=== PATIENT | female | born 1970 | race Caucasian/White ===

== ENCOUNTER 2016-04-12 05:34 | Inpatient (IN) | payer BC, OTHER ==
[~2016-04-12] VITALS: Ht 160 cm; Wt 67.5 kg
[~2016-04-12 05:34] MED LIST: ALBU1AER9 INH; ASCO500T16 PO; CHOL400C7 PO; OMEP20CA9 PO; OXYC-57 PO; VITA400C3 PO; VITATAB19 PO
[2016-04-12] MEDS ORDERED: KETOROLAC TROMETHAMINE 30 MG/ML VIAL IV STA (05:52)
[2016-04-12] MEDS ORDERED: SODIUM CHLORIDE 0.9% 1000ML 1,000 ML IV STA ×2 (05:52→06:58)
[2016-04-12] MEDS ORDERED: HYDROmorphone INJ 1 MG/ML SYR IV STA ×2 (05:52→15:22)
[2016-04-12 06:03] LABS: BASO % 0.1 %; BASO ABS # 0.02 K/uL (0-0.2); COMPLETE YES; EOS % 0.8 %; HEMATOCRIT 44.5 % (37-47); IG% 0.3 %; LYMPH % 28.9 %; LYMPH ABS # 4.55 K/uL (1.2-3.4); MEAN CELL VOLUME 85.1 fL (80-100); MEAN CORPUSCULAR HEMOGLOBIN 29.1 pg (25-34); MEAN CORPUSCULAR HGB CONC 34.2 g/dl (32-36); MEAN PLATELET VOLUME 10.2 fL (7.4-10.4); MONO % 5.5 %; NEUT % 64.4 %; PLATELET COUNT 319 K/uL (130-400); RED BLOOD COUNT 5.23 M/uL (4.2-5.4); WHITE BLOOD COUNT 15.74 K/uL (4.8-10.8)
[2016-04-12] MEDS ORDERED: HYDROmorphone INJ 0.5 MG/0.5 ML SYR IV STA (06:16)
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
[2016-04-12 06:21] LABS: ALT/SGPT 18 U/L (12-78); AST/SGOT 9 U/L (15-37); BLOOD UREA NITROGEN 15 mg/dl (7-18); BUN/CREATININE RATIO 15.5 (10-20); CALCIUM 9.1 mg/dl (8.5-10.1); CARBON DIOXIDE 24 mmol/L (21-32); CHLORIDE 110 mmol/L (98-107); CREATININE 0.99 mg/dl (0.60-1.20); GLUCOSE 131 mg/dl (70-99); POTASSIUM 4.1 mmol/L (3.5-5.1); SODIUM 143 mmol/L (136-145)
[2016-04-12 06:24] LABS: ALKALINE PHOSPHATASE 61 U/L (45-117)
[2016-04-12] MEDS ORDERED: OPTIRAY 320 IV PRN (06:30)
--- NOTE | 2016-04-12 06:32 | DIAGNOSTIC IMAGING REPORT ---
ABDOMEN 2VIEW W/PA CHEST RTN CLINICAL HISTORY: eval for sob COMPARISON STUDY: No previous studies for comparison. FINDINGS: The soft tissues, psoas shadows, renal outlines and intestinal gas pattern appear normal. There is no evidence for bowel obstruction. There is no evidence for free intraperitoneal air. No abnormal abdominal calcifications are seen. A frontal view of the chest was performed and is unremarkable. IMPRESSION: Normal study. Electronically signed by: Buddy Hernandez M.D. 04/12/2016 6:30 AM Dictated Date/Time: 04/12/2016 6:30 AM
[2016-04-12] MEDS ORDERED: CLR10 PO (06:42)
[2016-04-12] MEDS ORDERED: TRAM-10 PO (06:44)
[2016-04-12] MEDS ORDERED: FLUT0.15 NAE (06:47)
--- NOTE | 2016-04-12 06:49 | DIAGNOSTIC IMAGING REPORT ---
ABDOMEN AND PELVIS CT WITH IV CONTRAST CT DOSE: 615.80 mGy.cm HISTORY: Pain eval for sob or free air TECHNIQUE: Multiaxial CT images of the abdomen and pelvis were performed following the use of intravenous contrast. COMPARISON STUDY: 10/21/2015 FINDINGS: Lung bases are clear. Liver is uniform throughout. Spleen is unremarkable. Prior cholecystectomy. Trace peripancreatic infiltrative change and/or free fluid. Possibility of low-grade pancreatitis is considered. Bowel pattern is nonobstructive. Uterus is anteflexed. Trace free fluid within the pelvic cul-de-sac. Bladder is midline. IMPRESSION: 1. Nonobstructive bowel pattern. 2. Trace peripancreatic infiltrative change and fluid raising the possibility of low-grade pancreatitis. 3. Correlation with pancreatic enzymes status is recommended. 4. Otherwise negative study status post cholecystectomy. Electronically signed by: Buddy Hernandez M.D. 04/12/2016 6:48 AM Dictated Date/Time: 04/12/2016 6:45 AM
[2016-04-12 07:16] LABS: URINE APPEARANCE CLOUDY (CLEAR); URINE BILIRUBIN NEG (NEG); URINE COLOR YELLOW; URINE NITRITE NEG (NEG); URINE SPECIFIC GRAVITY > 1.045 (1.000-1.030); UROBILINOGEN NEG (NEG)
[2016-04-12 07:19] LABS: MANUAL MICROSCOPIC REQUIRED? YES; REVIEW REQ? NO
[2016-04-12 07:39] LABS: URINE BACTERIA 4+ (NEG); URINE WBC >30 /hpf (0-5)
[2016-04-12] MEDS: HYDROmorphone INJ 1 MG/ML SYR IV PRN ×6 (07:39→23:45)
--- NOTE | 2016-04-12 09:12 | History and Physical ---
History & Physical Date & Time of Service: Apr 12, 2016 at 08:46 Chief Complaint: Severe Stomach Pains Primary Care Physician: Iggy Ashley MD History of Present Illness Source: patient, spouse, clinic records, hospital records Patient is a 46 y/o female with no significant PMHx who presents for evaluation of abdominal pain. Patient notes epigastric pain that radiates to the back. Pain started suddenly this morning. She has never experienced anything like this before. Pain was associated with nausea this morning. She denies any emesis. She drinks socially and her last drink was 2 weeks ago. She had a cholecystectomy in 2004. She denies any h/o autoimmune disorders personally or in her family. In the ED, lipase was elevated to 80K. CT a/p was suggestive of low grade pancreatitis. She was given Dilaudid for pain control and IVF's. Past Medical/Surgical History Medical Problems: (1) Cholecystectomy Status: Resolved (2) Chronic back pain Status: Chronic (3) Migraines Status: Chronic Family History Diabetes mellitus FH: HTN (hypertension) Heart disease Kidney disease Social History Smoking Status: Former Smoker (quit 2013) Smokeless Tobacco Use: No Alcohol Use: socially (last drink was 2 weeks ago) Drug Use: none Marital Status: Housing status: lives with family Occupational Status: employed Immunizations History of Influenza Vaccine: N/A History of Tetanus Vaccine?: Yes Tetanus Immunization Date: Mar 15, 1989 History of Pneumococcal: No History of Hepatitis B Vaccine: No Allergies Coded Allergies: Morphine (Verified Allergy, Intermediate, CHEST PAIN, 04/06/14) Home Medications Scheduled PRN Fluticasone Propionate (Nasal) (Flonase Allergy Relief), 2 SPRAYS RODOLFO DAILY PRN for ALLERGIC REACTION Loratadine (Claritin), 10 MG PO DAILY PRN for ALLERGIC REACTION Omeprazole (Prilosec), 20 MG PO DAILY PRN for GI UPSET Tramadol (Ultram), 100 MG PO Q6H PRN for Pain Review of Systems Constitutional- denies fevers or chills Eyes- denies blurry vision, double vision or loss of vision ENT- denies sore throat or congestion Pulmonary- denies SOB or cough Cardiac- denies chest pain or palpitations GI- see above HPI - denies dysuria or hematuria Musculoskeletal- +chronic low back pain; +intermittent leg cramps Dermatologic- denies rashes or bruises Neuro- denies weakness, numbness or tingling Psych- denies depression or anxiety . Physical Exam Vital Signs Date Time Temp Pulse Resp B/P Pulse Ox O2 Delivery O2 Flow Rate FiO2 04/12/16 07:45 93 18 114/71 93 Room Air 04/12/16 06:22 77 18 107/68 96 Room Air 04/12/16 06:01 88 18 140/94 99 Room Air 04/12/16 05:36 36.4 112 20 95 Room Air General- awake; alert; NAD Eyes- EOMI; no scleral icterus Neck- no stridor; trachea midline Lungs- CTA bilaterally; no wheezes/crackles Heart- RRR; no m/r/g Abdomen- soft; mild diffuse tenderness to palpation; no guarding; ND; nBS Back- no gross abnormalities Extremities- no c/c/e; no deformity Neuro- no gross focal deficits Skin- no appreciable rash or bruise . Diagnostics Laboratory Results Results Past 24 Hours Test 04/12/16 05:52 04/12/16 05:55 04/12/16 07:03 Range/Units White Blood Count 15.74 4.8-10.8 K/uL Red Blood Count 5.23 4.2-5.4 M/uL Hemoglobin 15.2 12.0-16.0 g/dL Hematocrit 44.5 37-47 % Mean Corpuscular Volume 85.1 80-100 fL Mean Corpuscular Hemoglobin 29.1 25-34 pg Mean Corpuscular Hemoglobin Concent 34.2 32-36 g/dl Platelet Count 319 130-400 K/uL Mean Platelet Volume 10.2 7.4-10.4 fL Neutrophils (%) (Auto) 64.4 % Lymphocytes (%) (Auto) 28.9 % Monocytes (%) (Auto) 5.5 % Eosinophils (%) (Auto) 0.8 % Basophils (%) (Auto) 0.1 % Neutrophils # (Auto) 10.15 1.4-6.5 K/uL Lymphocytes # (Auto) 4.55 1.2-3.4 K/uL Monocytes # (Auto) 0.86 0.11-0.59 K/uL Eosinophils # (Auto) 0.12 0-0.5 K/uL Basophils # (Auto) 0.02 0-0.2 K/uL RDW Standard Deviation 40.2 36.4-46.3 fL RDW Coefficient of Variation 13.0 11.5-14.5 % Immature Granulocyte % (Auto) 0.3 % Immature Granulocyte # (Auto) 0.04 0.00-0.02 K/uL Sodium Level 143 136-145 mmol/L Potassium Level 4.1 3.5-5.1 mmol/L Chloride Level 110 98-107 mmol/L Carbon Dioxide Level 24 21-32 mmol/L Anion Gap 9.0 3-11 mmol/L Blood Urea Nitrogen 15 7-18 mg/dl Creatinine 0.99 0.60-1.20 mg/dl Est Creatinine Clear Calc Drug Dose 66.2 ml/min Estimated GFR () 79.8 Estimated GFR (Non- 68.8 BUN/Creatinine Ratio 15.5 10-20 Random Glucose 131 70-99 mg/dl Calcium Level 9.1 8.5-10.1 mg/dl Total Bilirubin 0.3 0.2-1 mg/dl Direct Bilirubin < 0.1 0-0.2 mg/dl Aspartate Amino Transf (AST/SGOT) 9 15-37 U/L Alanine Aminotransferase (ALT/SGPT) 18 12-78 U/L Alkaline Phosphatase 61 45-117 U/L Total Protein 7.9 6.4-8.2 gm/dl Albumin 4.2 3.4-5.0 gm/dl Lipase 89161 73-393 U/L Bedside Lactic Acid Venous 1.35 0.90-1.70 mmol/L Urine Color YELLOW Urine Appearance CLOUDY CLEAR Urine pH 5.0 4.5-7.5 Urine Specific [place] > 1.045 1.000-1.030 Urine Protein NEG NEG Urine Glucose (UA) NEG NEG Urine Ketones NEG NEG Urine Occult Blood 1+ NEG Urine Nitrite NEG NEG Urine Bilirubin NEG NEG Urine Urobilinogen NEG NEG Urine Leukocyte Esterase TRACE NEG Urine RBC (Auto) 0-4 /hpf Urine Hyaline Casts (Auto) 0-5 /lpf Urine RBC 5-10 0-4 /hpf Urine WBC >30 0-5 /hpf Urine Epithelial Cells >30 0-5 /lpf Urine Renal Epithelial Cells 0-5 /lpf Urine Bacteria 4+ NEG Urine Pathogenic Casts 0 /lpf Urine Yeast BUDDING NONE PRSENT Urine Test NEG NEG Diagnostic Radiology CT a/p 1. Nonobstructive bowel pattern. 2. Trace peripancreatic infiltrative change and fluid raising the possibility of low-grade pancreatitis. 3. Correlation with pancreatic enzymes status is recommended. 4. Otherwise negative study status post cholecystectomy. Impression Assessment and Plan Patient is a 46 y/o female who presents with acute pancreatitis. Acute pancreatitis - elevated lipase - CT a/p suggestive of low grade pancreatitis - unclear etiology - only occasional EtOH use; last drink was 2 weeks ago - s/p cholecystectomy in 2004 - no offending medications identified (patient reports only taking OTC vitamins) - check fasting lipid panel - GI consulted - continue IVF's - NPO except ice chips - Dilaudid and Toradol PRN pain DVT prophylaxis with SCD's and ambulation. Level of Care Med/Surg Resuscitation Status FULL RESUSCITATION VTE Prophylaxis VTE Risk Assessment Done? Y/N: Yes Risk Level: Low Given or contraindicated: SCD's
[2016-04-12] MEDS: ONDANSETRON INJ 2 MG/ML 2 ML VIAL IV PRN ×3 (09:43→23:44)
[2016-04-12] MEDS ORDERED: SODIUM CHLORIDE 0.9% 1000ML 1,000 ML IV SCH (09:45)
[2016-04-12 10:52] VITALS: O2SAT 94; Ht 160 cm; Wt 67.5 kg
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
[2016-04-12] MEDS: LACTATED RINGER'S 1000ML 1,000 ML IV SCH ×4 (11:24→23:44)
[2016-04-12] MEDS: KETOROLAC TROMETHAMINE 30 MG/ML VIAL IV PRN (11:31)
[2016-04-12 15:30] VITALS: BP 122/69; PULSE 83; TEMP 36.3; O2SAT 94
[2016-04-12] MEDS ORDERED: PROMETHAZINE HCL INJ 25 MG in SODIUM CHLORIDE 0.9% 50ML 50 ML IV PRN (15:30)
[2016-04-12] MEDS ORDERED: LACTATED RINGER'S 1000ML 1,000 ML IV ONE (15:30)
[2016-04-12] MEDS: PANTOprazole INJ 40 MG in SYRINGE 0 ML IV SCH (21:09)
[2016-04-12 23:11] VITALS: BP 110/65; PULSE 90; TEMP 37.3; O2SAT 90
[2016-04-12 23:30] VITALS: O2SAT 93
[2016-04-13] MEDS: HYDROmorphone INJ 1 MG/ML SYR IV PRN ×4 (02:44→20:06)
[2016-04-13] MEDS: LACTATED RINGER'S 1000ML 1,000 ML IV SCH ×4 (05:23→20:11)
[2016-04-13] MEDS: KETOROLAC TROMETHAMINE 30 MG/ML VIAL IV PRN ×2 (05:23→12:16)
[2016-04-13 06:47] LABS: HEMATOCRIT 35.4 % (37-47); MEAN CELL VOLUME 86.8 fL (80-100); MEAN CORPUSCULAR HEMOGLOBIN 28.9 pg (25-34); MEAN CORPUSCULAR HGB CONC 33.3 g/dl (32-36); MEAN PLATELET VOLUME 10.5 fL (7.4-10.4); PLATELET COUNT 240 K/uL (130-400); RED BLOOD COUNT 4.08 M/uL (4.2-5.4); WHITE BLOOD COUNT 12.99 K/uL (4.8-10.8)
[2016-04-13 07:07] LABS: CALCIUM 7.6 mg/dl (8.5-10.1); CREATININE 0.69 mg/dl (0.60-1.20); POTASSIUM 3.6 mmol/L (3.5-5.1)
[2016-04-13 07:17] VITALS: BP 95/55; PULSE 90; TEMP 36.7; O2SAT 90
[2016-04-13] MEDS: PANTOprazole INJ 40 MG in SYRINGE 0 ML IV SCH ×2 (08:24→20:06)
--- NOTE | 2016-04-13 11:09 | Progress Note ---
Progress Note Pt complains of abdominal pain that is mildly improved today. Persistent intermittent nausea, with episode of vomiting yesterday. She is not hungry. No BM or flatus this morning. Still requiring narcotics. Vital Signs Past 12 Hours Date Time Temp Pulse Resp B/P Pulse Ox O2 Delivery O2 Flow Rate FiO2 04/13/16 08:14 Room Air 04/13/16 07:17 36.7 90 16 95/55 90 Room Air 04/12/16 23:30 93 Room Air 04/12/16 23:11 37.3 90 14 110/65 90 Room Air Chest: Bilat bibasilar crackles Abd: Soft NT ND Labs reviewed - drop in hgb overnight, normal BUN, LFTs remain normal. A/P: Pancreatitis - CLinically improved, with appropriate drop in hgb and persistently normal BUN. Please continue analgesia, and provide pt diet as tolerated. There is no need to follow lipase daily, as this provides no prognostic information. She has nausea, which may be compounded by narcotic use -- please begin Reglan 5 IV TID. She is mildly hypoxic, which is likely related to splinting and atelectasis. Will request chest CT. Please call with questions over weekend.
--- NOTE | 2016-04-13 11:53 | DIAGNOSTIC IMAGING REPORT ---
CHEST 2 VIEWS ROUTINE CLINICAL HISTORY: SOB, RLL crackles dyspnea COMPARISON STUDY: No previous studies for comparison. FINDINGS: Bibasilar parenchymal infiltrates. The ductal lungs are considered clear. No evidence for cardiac enlargement. Slight blunting left lateral and posterior gastric angle. IMPRESSION: Bibasilar infiltrates Electronically signed by: Buddy Hernandez M.D. 04/13/2016 11:51 AM Dictated Date/Time: 04/13/2016 11:51 AM
--- NOTE | 2016-04-13 11:56 | DIAGNOSTIC IMAGING REPORT ---
KUB CLINICAL HISTORY: Abdominal distention and pancreatitis COMPARISON STUDY: 04/12/2016 FINDINGS: There is moderate stool at the level of the hepatic flexure.. There are right upper quadrant surgical clips consistent with a prior cholecystectomy. There are no transition zone to indicate bowel obstruction. There is a 3 mm calcification projected over the lower pole the left kidney. It is not possible to differentiate enteric contents from a small calculus. IMPRESSION: Moderate amount of stool in the region of the hepatic flexure. No evidence of pathologic bowel dilatation. Electronically signed by: Herber Nichlos M.D. 04/13/2016 11:55 AM Dictated Date/Time: 04/13/2016 11:53 AM
[2016-04-13] MEDS ORDERED: METOCLOPRAMIDE HCL INJ 5 MG/ML 2 ML VIAL IV PRN (13:15)
[2016-04-13] MEDS ORDERED: OPTIRAY 320 IV PRN (13:45)
--- NOTE | 2016-04-13 14:21 | DIAGNOSTIC IMAGING REPORT ---
CT ANGIOGRAM OF THE CHEST CLINICAL HISTORY: Shortness of breath. Pancreatitis. COMPARISON STUDY: 10/21/2015 TECHNIQUE: Following the IV administration of 119 mL of Optiray-320, CT angiogram of the thorax was performed from the thoracic inlet to the lung bases utilizing the pulmonary embolus protocol. Images are reviewed in the axial, sagittal, and coronal planes. IV contrast was administered without complication. MIP imaging was performed. CT DOSE: 297.80 mGy.cm FINDINGS: No pathologically enlarged axillary mediastinal or hilar lymph nodes were visualized. There was no evidence of thoracic aortic dilatation. There were no pulmonary artery filling defects to indicate acute pulmonary embolism. There are bilateral pleural effusions. There are bilateral lower lobe airspace opacities, likely atelectatic. IMPRESSION: 1. No CT evidence of acute pulmonary embolism 2. Bilateral pleural effusions with associated bibasal airspace opacities statistically atelectatic Electronically signed by: Herber Nichols M.D. 04/13/2016 2:20 PM Dictated Date/Time: 04/13/2016 2:16 PM
[2016-04-13] MEDS: DOCUSATE SODIUM/SENNA 50/8.6MG TAB PO SCH (14:32)
[2016-04-13 15:41] VITALS: BP 122/71; PULSE 94; TEMP 37.1; O2SAT 92
[2016-04-13] MEDS: ONDANSETRON INJ 2 MG/ML 2 ML VIAL IV PRN (16:02)
--- NOTE | 2016-04-13 18:57 | Progress Note ---
Medicine Progress Note Date & Time of Visit: Apr 13, 2016 at 18:52. Subjective Patient seen and examined. Walking the hallway with . Tolerating clear liquid diet today. Objective Last 8 Hrs Date Time Temp Pulse Resp B/P Pulse Ox O2 Delivery O2 Flow Rate FiO2 04/13/16 16:05 Room Air 04/13/16 15:41 37.1 94 16 122/71 92 Room Air Physical Exam: General-awake; alert; NAD Eyes-EOMI; no scleral icterus Neck-no stridor; trachea midline Lungs-CTA bilaterally; no wheezes/crackles Heart-RRR; no m/r/g Abdomen-soft; mildly distended; diffusely tender to palpation; nBS Extremities-no c/c/e; no deformity Neuro-no gross focal deficits Laboratory Results: Last 24 Hours Test 04/13/16 05:40 White Blood Count 12.99 K/uL Red Blood Count 4.08 M/uL Hemoglobin 11.8 g/dL Hematocrit 35.4 % Mean Corpuscular Volume 86.8 fL Mean Corpuscular Hemoglobin 28.9 pg Mean Corpuscular Hemoglobin Concent 33.3 g/dl RDW Standard Deviation 43.5 fL RDW Coefficient of Variation 13.6 % Platelet Count 240 K/uL Mean Platelet Volume 10.5 fL Sodium Level 142 mmol/L Potassium Level 3.6 mmol/L Chloride Level 110 mmol/L Carbon Dioxide Level 26 mmol/L Anion Gap 6.0 mmol/L Blood Urea Nitrogen 12 mg/dl Creatinine 0.69 mg/dl Est Creatinine Clear Calc Drug Dose 95.0 ml/min Estimated GFR () 121.8 Estimated GFR (Non- 105.1 BUN/Creatinine Ratio 17.0 Random Glucose 97 mg/dl Calcium Level 7.6 mg/dl Total Bilirubin 0.4 mg/dl Aspartate Amino Transf (AST/SGOT) 25 U/L Alanine Aminotransferase (ALT/SGPT) 53 U/L Alkaline Phosphatase 44 U/L Total Protein 5.5 gm/dl Albumin 2.8 gm/dl Globulin 2.7 gm/dl Albumin/Globulin Ratio 1.0 Triglycerides Level 48 mg/dl Cholesterol Level 96 mg/dl HDL Cholesterol 49 mg/dl LDL Cholesterol, Calculated 37 mg/dl VLDL Cholesterol, Calculated 10 mg/dl Cholesterol/HDL Ratio 2.0 Lipase 44638 U/L Assessment & Plan Patient is a 46 y/o female who presented with acute pancreatitis. Acute pancreatitis - elevated lipase - CT a/p suggestive of low grade pancreatitis - unclear etiology - only occasional EtOH use; last drink was 2 weeks ago - s/p cholecystectomy in 2004 - no offending medications identified (patient reports only taking OTC vitamins) - fasting lipid normal - GI consulted - continue IVF's - started clear liquid diet - Dilaudid and Toradol PRN pain DVT prophylaxis with SCD's and ambulation. Consultants: Gastroenterology Procedures: CT a/p 1. Nonobstructive bowel pattern. 2. Trace peripancreatic infiltrative change and fluid raising the possibility of low-grade pancreatitis. 3. Correlation with pancreatic enzymes status is recommended. 4. Otherwise negative study status post cholecystectomy. CT chest 1. No CT evidence of acute pulmonary embolism 2. Bilateral pleural effusions with associated bibasal airspace opacities statistically atelectatic Current Inpatient Medications: Current Inpatient Medications Medications (Trade) Dose Ordered Sig/Maurilio Route Start Time Stop Time Status Last Admin Dose Admin Ioversol (Optiray 320) 111 ml UD PRN IV 04/12/16 06:30 04/16/16 06:29 Ondansetron HCl (Zofran Inj) 4 mg Q6H PRN IV 04/12/16 08:30 05/12/16 08:29 04/13/16 16:02 4 MG Ketorolac Tromethamine (Toradol Inj) 30 mg Q6H PRN IV 04/12/16 08:30 04/17/16 08:29 04/13/16 12:16 30 MG Hydromorphone HCl 1 mg 1 mg Q3HWA PRN IV 04/12/16 08:30 04/26/16 08:29 04/13/16 16:02 1 MG Lactated Ringer's 1,000 ml @ 150 mls/hr Q6H40M IV 04/12/16 11:30 05/12/16 11:29 04/13/16 13:36 150 MLS/HR Pantoprazole Sodium 40 mg/ Syringe 10 ml @ 5 mls/min DAILY@09,21 IV 04/12/16 21:00 05/12/16 20:59 04/13/16 08:24 5 MLS/MIN Promethazine HCl/ Sodium Chloride (Phenergan Inj/ Nss 50ml) 51 ml @ 204 mls/hr Q6H PRN IV 04/12/16 15:30 05/12/16 15:29 04/12/16 20:07 204 MLS/HR Metoclopramide HCl (Reglan Inj) 5 mg Q6H PRN IV 04/13/16 13:15 05/13/16 13:14 Senna/Docusate Sodium (Senokot S Tab) 1 tab QAM PO 04/13/16 14:00 05/13/16 13:59 04/13/16 14:32 1 TAB Ioversol (Optiray 320) 111 ml UD PRN IV 04/13/16 13:45 04/17/16 13:44
[2016-04-13 21:27] VITALS: O2SAT 92
[2016-04-13 22:53] VITALS: BP 111/66; PULSE 91; TEMP 36.9; O2SAT 91
[2016-04-14] MEDS: KETOROLAC TROMETHAMINE 30 MG/ML VIAL IV PRN ×3 (01:02→15:39)
[2016-04-14] MEDS: LACTATED RINGER'S 1000ML 1,000 ML IV SCH ×3 (02:51→15:39)
[2016-04-14 07:11] VITALS: BP 136/79; PULSE 100; TEMP 37; O2SAT 92
[2016-04-14 08:03] LABS: HEMATOCRIT 36.1 % (37-47); MEAN CELL VOLUME 87.2 fL (80-100); MEAN CORPUSCULAR HEMOGLOBIN 29.5 pg (25-34); MEAN CORPUSCULAR HGB CONC 33.8 g/dl (32-36); MEAN PLATELET VOLUME 10.3 fL (7.4-10.4); PLATELET COUNT 229 K/uL (130-400); RED BLOOD COUNT 4.14 M/uL (4.2-5.4); WHITE BLOOD COUNT 12.37 K/uL (4.8-10.8)
[2016-04-14] MEDS: PANTOprazole INJ 40 MG in SYRINGE 0 ML IV SCH ×2 (08:55→20:30)
[2016-04-14] MEDS: DOCUSATE SODIUM/SENNA 50/8.6MG TAB PO SCH (08:55)
--- NOTE | 2016-04-14 11:09 | GASTROENTEROLOGY PROGRESS NOTE ---
DATE: 04/14/2016 DATE: 04/14/2016. Progress note on cross coverage for [facility]. ATTENDING PHYSICIAN: Dr. Fierro. COVERING PHYSICIAN: Dr. Chance Mueller. SUBJECTIVE: I had the pleasure of seeing Kimberly Salvador at her bedside today. She continues to complain of significant abdominal pain in the midepigastric area. She states that her pain overnight was as high as a 7-8/10 in intensity, radiating into her back without exacerbating factors though was alleviated with narcotic analgesics. She denies any nausea, vomiting, hematemesis, melena or hematochezia. REVIEW OF SYSTEMS: Negative times a 10 system review other than pertinent positives listed in the HPI. PHYSICAL EXAMINATION: VITAL SIGNS: Include temperature 37, pulse 100, respirations 16, blood pressure 136/79, pulse ox 92% on room air. GENERAL EXAMINATION: She is awake, cooperative, in mild distress from abdominal pain. HEAD: Normocephalic, atraumatic. EYES: Pupils equally round. Extraocular muscles are intact. Sclerae are nonicteric. EARS, NOSE, THROAT: External evaluation of ears and nose are normal. Oropharynx is clear. NECK: Soft, supple. CHEST: Decreased breath sounds bilateral bases. CARDIOVASCULAR SYSTEM: Regular rate and rhythm. ABDOMEN: Soft. Exquisitely tender in the midepigastric area and nondistended. There are positive bowel sounds. There is no hepatosplenomegaly or stigmata of chronic liver disease. EXTREMITIES: No clubbing, cyanosis, or edema. Her CT scan of the chest yesterday showed no evidence of an acute pulmonary embolism, bilateral pleural effusions were noted. She did undergo abdominal and pelvis CT on 04/12/2016 which showed evidence of mild pancreatitis and the fact that she has had a cholecystectomy previously. IMPRESSION: This is a 46-year-old female with continued abdominal pain, elevated lipase and abnormal imaging study consistent with acute pancreatitis. PLAN: Agree with Dr. Kenneyd that there is no prognostic information to be obtained by checking a repeat lipase level and therefore will not check this routinely. I would continue supportive care with narcotic analgesics, antiemetics and IV fluids to treat the patient supportively. I will follow her clinical course and make further recommendations. Once again, thanks for allowing me to participate in the care of this patient. If you have any further questions, please do not hesitate in contacting me.
[2016-04-14] MEDS: POLYETHYLENE (MIRALAX) 17 GM PACK PO SCH (13:40)
[2016-04-14 16:06] VITALS: BP 126/74; PULSE 95; TEMP 37.1; O2SAT 92
[2016-04-14] MEDS ORDERED: NURSING VERBAL MED ORDER ONE (17:45)
--- NOTE | 2016-04-14 18:24 | Progress Note ---
Medicine Progress Note Date & Time of Visit: Apr 14, 2016 at 18:23. Subjective Patient seen and examined. Band of abdominal pain across middle of abdomen. Tolerating clear liquid diet. Passing flatus. Objective Last 8 Hrs Date Time Temp Pulse Resp B/P Pulse Ox O2 Delivery O2 Flow Rate FiO2 04/14/16 16:06 37.1 95 16 126/74 92 Room Air Physical Exam: General-awake; alert; NAD Eyes-EOMI; no scleral icterus Neck-no stridor; trachea midline Lungs-CTA bilaterally; no wheezes/crackles Heart-RRR; no m/r/g Abdomen-soft; mildly distended; diffusely tender to palpation; nBS Extremities-no c/c/e; no deformity Neuro-no gross focal deficits Laboratory Results: Last 24 Hours Test 04/14/16 07:34 White Blood Count 12.37 K/uL Red Blood Count 4.14 M/uL Hemoglobin 12.2 g/dL Hematocrit 36.1 % Mean Corpuscular Volume 87.2 fL Mean Corpuscular Hemoglobin 29.5 pg Mean Corpuscular Hemoglobin Concent 33.8 g/dl RDW Standard Deviation 43.5 fL RDW Coefficient of Variation 13.4 % Platelet Count 229 K/uL Mean Platelet Volume 10.3 fL Assessment & Plan Patient is a 46 y/o female who presented with acute pancreatitis. Acute pancreatitis - elevated lipase - CT a/p suggestive of low grade pancreatitis - unclear etiology - only occasional EtOH use; last drink was 2 weeks ago - s/p cholecystectomy in 2004 - no offending medications identified (patient reports only taking OTC vitamins) - fasting lipids normal - GI consulted - continue IVF's - continue clear liquid diet - Dilaudid and Toradol PRN pain DVT prophylaxis with SCD's and ambulation. Consultants: Gastroenterology Procedures: CT a/p 1. Nonobstructive bowel pattern. 2. Trace peripancreatic infiltrative change and fluid raising the possibility of low-grade pancreatitis. 3. Correlation with pancreatic enzymes status is recommended. 4. Otherwise negative study status post cholecystectomy. CT chest 1. No CT evidence of acute pulmonary embolism 2. Bilateral pleural effusions with associated bibasal airspace opacities statistically atelectatic Current Inpatient Medications: Current Inpatient Medications Medications (Trade) Dose Ordered Sig/[place]aur[place] Route Start Time Stop Time Status Last Admin Dose Admin Ioversol (Optiray 320) 111 ml UD PRN IV 04/12/16 06:30 04/16/16 06:29 Ondansetron HCl (Zofran Inj) 4 mg Q6H PRN IV 04/12/16 08:30 05/12/16 08:29 04/13/16 16:02 4 MG Ketorolac Tromethamine (Toradol Inj) 30 mg Q6H PRN IV 04/12/16 08:30 04/17/16 08:29 04/14/16 15:39 30 MG Hydromorphone HCl 1 mg 1 mg Q3HWA PRN IV 04/12/16 08:30 04/26/16 08:29 04/13/16 20:06 1 MG Lactated Ringer's 1,000 ml @ 100 mls/hr Q10H IV 04/12/16 11:30 05/12/16 11:29 04/14/16 15:39 100 MLS/HR Pantoprazole Sodium 40 mg/ Syringe 10 ml @ 5 mls/min DAILY@09,21 IV 04/12/16 21:00 05/12/16 20:59 04/14/16 08:55 5 MLS/MIN Promethazine HCl/ Sodium Chloride (Phenergan Inj/ Nss 50ml) 51 ml @ 204 mls/hr Q6H PRN IV 04/12/16 15:30 05/12/16 15:29 04/12/16 20:07 204 MLS/HR Metoclopramide HCl (Reglan Inj) 5 mg Q6H PRN IV 04/13/16 13:15 05/13/16 13:14 Senna/Docusate Sodium (Senokot S Tab) 1 tab QAM PO 04/13/16 14:00 05/13/16 13:59 04/14/16 08:55 1 TAB Ioversol (Optiray 320) 111 ml UD PRN IV 04/13/16 13:45 04/17/16 13:44 Polyethylene (Miralax Powder Packet) 17 gm DAILY PO 04/14/16 12:30 05/14/16 12:29 04/14/16 13:40 17 GM Sumatriptan Succinate (Imitrex Tab) 25 mg DAILY PRN PO 04/14/16 12:00 05/14/16 11:59
[2016-04-14 22:26] VITALS: PULSE 96; O2SAT 91
[2016-04-14 23:01] VITALS: BP 97/61; PULSE 100; TEMP 37; O2SAT 98
[2016-04-15] MEDS: LACTATED RINGER'S 1000ML 1,000 ML IV SCH ×3 (01:43→21:38)
[2016-04-15] MEDS: KETOROLAC TROMETHAMINE 30 MG/ML VIAL IV PRN ×3 (02:25→21:39)
[2016-04-15 02:35] VITALS: O2SAT 93
[2016-04-15 07:15] VITALS: BP 123/81; PULSE 78; TEMP 36.7; O2SAT 96
[2016-04-15] MEDS: PANTOprazole INJ 40 MG in SYRINGE 0 ML IV SCH ×2 (09:27→21:35)
[2016-04-15 11:14] LABS: HEMATOCRIT 31.5 % (37-47); MEAN CORPUSCULAR HEMOGLOBIN 29.6 pg (25-34); MEAN CORPUSCULAR HGB CONC 35.2 g/dl (32-36); MEAN PLATELET VOLUME 9.6 fL (7.4-10.4); PLATELET COUNT 225 K/uL (130-400); RED BLOOD COUNT 3.75 M/uL (4.2-5.4); WHITE BLOOD COUNT 12.47 K/uL (4.8-10.8)
--- NOTE | 2016-04-15 11:20 | DIAGNOSTIC IMAGING REPORT ---
ABDOMEN 2 VIEWS CLINICAL HISTORY: Worsening abdominal pain. COMPARISON STUDY: CT of the abdomen and pelvis April 12, 2016 and KUB April 13, 2016. FINDINGS: There is no free air. Bilateral pleural effusions and associated bibasilar opacities persist. There are cholecystectomy clips. The bowel gas pattern is normal. There are small bilateral renal calculi. A left pelvic calcification likely reflects a phlebolith. IMPRESSION: 1. No free air or evidence of bowel obstruction. 2. Bilateral nephrolithiasis. 3. Small bilateral pleural effusions and bibasilar opacities, as shown on prior chest CT. Electronically signed by: Dwayne Montes M.D. 04/15/2016 11:19 AM Dictated Date/Time: 04/15/2016 11:17 AM
[2016-04-15 11:41] LABS: BUN/CREATININE RATIO 11.5 (10-20); CALCIUM 7.9 mg/dl (8.5-10.1); CREATININE 0.66 mg/dl (0.60-1.20); POTASSIUM 3.2 mmol/L (3.5-5.1)
[2016-04-15] MEDS: POLYETHYLENE (MIRALAX) 17 GM PACK PO SCH (13:06)
[2016-04-15] MEDS: DOCUSATE SODIUM/SENNA 50/8.6MG TAB PO SCH (13:06)
[2016-04-15 15:02] VITALS: BP 113/73; PULSE 81; TEMP 36.7; O2SAT 95
--- NOTE | 2016-04-15 17:20 | Progress Note ---
Medicine Progress Note Date & Time of Visit: Apr 15, 2016 at 17:17. Subjective Patient seen and examined. Tearful this morning. Notes continued abdominal pain. Did have a moderate, soft BM yesterday. Did have a small amount of loose, watery stool earlier this am. Objective Last 8 Hrs Date Time Temp Pulse Resp B/P Pulse Ox O2 Delivery O2 Flow Rate FiO2 04/15/16 15:02 36.7 81 16 113/73 95 Room Air Physical Exam: General-awake; alert; NAD Eyes-EOMI; no scleral icterus Neck-no stridor; trachea midline Lungs-CTA bilaterally; no wheezes/crackles Heart-RRR; no m/r/g Abdomen-soft; mildly distended; diffusely tender to palpation; nBS Extremities-no c/c/e; no deformity Neuro-no gross focal deficits Laboratory Results: Last 24 Hours Test 04/15/16 10:54 White Blood Count 12.47 K/uL Red Blood Count 3.75 M/uL Hemoglobin 11.1 g/dL Hematocrit 31.5 % Mean Corpuscular Volume 84.0 fL Mean Corpuscular Hemoglobin 29.6 pg Mean Corpuscular Hemoglobin Concent 35.2 g/dl RDW Standard Deviation 40.1 fL RDW Coefficient of Variation 13.0 % Platelet Count 225 K/uL Mean Platelet Volume 9.6 fL Sodium Level 143 mmol/L Potassium Level 3.2 mmol/L Chloride Level 111 mmol/L Carbon Dioxide Level 25 mmol/L Anion Gap 7.0 mmol/L Blood Urea Nitrogen 8 mg/dl Creatinine 0.66 mg/dl Est Creatinine Clear Calc Drug Dose 99.3 ml/min Estimated GFR () 123.6 Estimated GFR (Non- 106.7 BUN/Creatinine Ratio 11.5 Random Glucose 86 mg/dl Calcium Level 7.9 mg/dl Lipase 311 U/L Assessment & Plan Patient is a 46 y/o female who presented with acute pancreatitis. Acute pancreatitis - elevated lipase on admission - CT a/p suggestive of low grade pancreatitis - unclear etiology - only occasional EtOH use; last drink was 2 weeks ago - s/p cholecystectomy in 2004 - no offending medications identified (patient reports only taking OTC vitamins) - fasting lipids normal - GI consulted - continue IVF's - continue clear liquid diet - Dilaudid and Toradol PRN pain - bowel regimen DVT prophylaxis with SCD's and ambulation. Consultants: Gastroenterology Procedures: CT a/p 1. Nonobstructive bowel pattern. 2. Trace peripancreatic infiltrative change and fluid raising the possibility of low-grade pancreatitis. 3. Correlation with pancreatic enzymes status is recommended. 4. Otherwise negative study status post cholecystectomy. CT chest 1. No CT evidence of acute pulmonary embolism 2. Bilateral pleural effusions with associated bibasal airspace opacities statistically atelectatic Current Inpatient Medications: Current Inpatient Medications Medications (Trade) Dose Ordered Sig/Maurilio Route Start Time Stop Time Status Last Admin Dose Admin Ioversol (Optiray 320) 111 ml UD PRN IV 04/12/16 06:30 04/16/16 06:29 Ondansetron HCl (Zofran Inj) 4 mg Q6H PRN IV 04/12/16 08:30 05/12/16 08:29 04/13/16 16:02 4 MG Ketorolac Tromethamine (Toradol Inj) 30 mg Q6H PRN IV 04/12/16 08:30 04/17/16 08:29 04/15/16 13:06 30 MG Hydromorphone HCl 1 mg 1 mg Q3HWA PRN IV 04/12/16 08:30 04/26/16 08:29 04/13/16 20:06 1 MG Lactated Ringer's 1,000 ml @ 100 mls/hr Q10H IV 04/12/16 11:30 05/12/16 11:29 04/15/16 11:29 100 MLS/HR Pantoprazole Sodium 40 mg/ Syringe 10 ml @ 5 mls/min DAILY@,21 IV 04/12/16 21:00 05/12/16 20:59 04/15/16 09:27 5 MLS/MIN Promethazine HCl/ Sodium Chloride (Phenergan Inj/ Nss 50ml) 51 ml @ 204 mls/hr Q6H PRN IV 04/12/16 15:30 05/12/16 15:29 04/12/16 20:07 204 MLS/HR Metoclopramide HCl (Reglan Inj) 5 mg Q6H PRN IV 04/13/16 13:15 05/13/16 13:14 Senna/Docusate Sodium (Senokot S Tab) 1 tab QAM PO 04/13/16 14:00 05/13/16 13:59 04/15/16 13:06 1 TAB Ioversol (Optiray 320) 111 ml UD PRN IV 04/13/16 13:45 04/17/16 13:44 Polyethylene (Miralax Powder Packet) 17 gm DAILY PO 04/14/16 12:30 05/14/16 12:29 04/15/16 13:06 17 GM Sumatriptan Succinate (Imitrex Tab) 25 mg DAILY PRN PO 04/14/16 12:00 05/14/16 11:59
[2016-04-15] MEDS ORDERED: POTASSIUM CHLORIDE 20 MEQ TABCR PO ONE (17:30)
[2016-04-15 22:46] VITALS: BP 117/69; PULSE 98; TEMP 37; O2SAT 93
[2016-04-16] MEDS: LACTATED RINGER'S 1000ML 1,000 ML IV SCH (07:12)
[2016-04-16 07:25] VITALS: BP 135/79; PULSE 73; TEMP 36.6; O2SAT 95
[2016-04-16] MEDS: DOCUSATE SODIUM/SENNA 50/8.6MG TAB PO SCH (09:00)
[2016-04-16] MEDS: POLYETHYLENE (MIRALAX) 17 GM PACK PO SCH (09:00)
[2016-04-16] MEDS: PANTOprazole INJ 40 MG in SYRINGE 0 ML IV SCH (09:19)
[2016-04-16] MEDS ORDERED: POTASSIUM CHLORIDE 20 MEQ TABCR PO ONE (12:00)
[2016-04-16] MEDS: SACCHAROMYCES BOUL (FLORASTOR) 250 MG CAP PO SCH (12:06)
--- NOTE | 2016-04-16 12:16 | Gastroenterology Progress Note ---
Progress Note Date of Service: Apr 16, 2016 Subjective Pt evaluation today including: conversation w/ patient, physical exam, chart review Ms. Salvador is doing well, no complaints. She is hungry and is requesting food. She has been on clear liquids since Saturday. She had laxatives yesterday and suppository yesterday after KUB that was unremarkable. She is having persisting loose stools. Stool culture and c.diff ordered. ROS negative Review of Systems Constitutional: No chills, No fever Respiratory: No cough, No shortness of breath Cardiac: No chest pain, No edema Abdomen: + diarrhea, + pain (mild discomfort and full feeling, reports bloating ), No GI bleeding, No constipation, No nausea, No vomiting Medications Current Inpatient Medications Medications (Trade) Dose Ordered Sig/Maurilio Route Start Time Stop Time Status Last Admin Dose Admin Ondansetron HCl (Zofran Inj) 4 mg Q6H PRN IV 04/12/16 08:30 05/12/16 08:29 04/13/16 16:02 4 MG Ketorolac Tromethamine (Toradol Inj) 30 mg Q6H PRN IV 04/12/16 08:30 04/17/16 08:29 04/15/16 21:39 30 MG Hydromorphone HCl 1 mg 1 mg Q3HWA PRN IV 04/12/16 08:30 04/26/16 08:29 04/13/16 20:06 1 MG Promethazine HCl/ Sodium Chloride (Phenergan Inj/ Nss 50ml) 51 ml @ 204 mls/hr Q6H PRN IV 04/12/16 15:30 05/12/16 15:29 04/12/16 20:07 204 MLS/HR Metoclopramide HCl (Reglan Inj) 5 mg Q6H PRN IV 04/13/16 13:15 05/13/16 13:14 04/16/16 04:55 5 MG Senna/Docusate Sodium (Senokot S Tab) 1 tab QAM PO 04/13/16 14:00 05/13/16 13:59 Future Hold 04/15/16 13:06 1 TAB Ioversol (Optiray 320) 111 ml UD PRN IV 04/13/16 13:45 04/17/16 13:44 Polyethylene (Miralax Powder Packet) 17 gm DAILY PO 04/14/16 12:30 05/14/16 12:29 Future Hold 04/15/16 13:06 17 GM Sumatriptan Succinate (Imitrex Tab) 25 mg DAILY PRN PO 04/14/16 12:00 05/14/16 11:59 Saccharomyces Boulardii (Florastor Cap) 250 mg DAILY PO 04/16/16 12:00 05/16/16 11:59 Pantoprazole Sodium (Protonix Tab) 40 mg BID PO 04/16/16 21:00 05/16/16 20:59 Potassium Chloride (Klor-Con Tab) 40 meq NOW ONCE PO 04/16/16 12:00 04/16/16 12:01 Objective Vital Signs Date Time Temp Pulse Resp B/P Pulse Ox O2 Delivery O2 Flow Rate FiO2 04/16/16 07:25 36.6 73 16 135/79 95 Room Air 04/16/16 07:15 Room Air 04/15/16 23:25 Room Air 04/15/16 22:46 37.0 98 16 117/69 93 Room Air 04/15/16 15:15 Room Air 04/15/16 15:02 36.7 81 16 113/73 95 Room Air Physical Exam General Appearance: no apparent distress Eyes: normal inspection ENT: hearing grossly normal Neck: supple, trachea midline Respiratory/Chest: lungs clear, normal breath sounds, no respiratory distress, no accessory muscle use Cardiovascular: no edema, no gallop, no JVD, no murmur Abdomen: normal bowel sounds, non tender, soft, no organomegaly Extremities: non-tender Neurologic/Psych: alert, normal mood/affect, oriented x 3 Skin: normal color, no jaundice, warm/dry, no rash Assessment and Plan Ok to advance diet to low-fat (will start with full liquid at the request of the patient as she is feeling bloated) GI to sign off. Please call with any questions. ATTESTATION: I have performed a history and physical examination of this patient and reviewed the electronic record. Specifically, on physical examination there is no abdominal tenderness. I have discussed the case with LAQUITA Kasper. The above note reflects my findings, conclusions, and recommendations. Hang Botello MD
[2016-04-16] MEDS: SUMATRIPTAN SUCCINATE 25 MG TAB PO PRN (13:39)
[2016-04-16 15:30] VITALS: BP 135/83; PULSE 70; TEMP 36.7; O2SAT 98
[2016-04-16] MEDS ORDERED: SIMETHICONE 80 MG CHEW PO PRN (16:30)
--- NOTE | 2016-04-16 16:53 | Progress Note ---
Medicine Progress Note Date & Time of Visit: Apr 16, 2016 at 16:50. Subjective Patient seen and examined. Feeling a bit better today. Still feels bloated. Had multiple loose, watery BM's yesterday. States that she felt hungry for food for the first time last night. Objective Last 8 Hrs Date Time Temp Pulse Resp B/P Pulse Ox O2 Delivery O2 Flow Rate FiO2 04/16/16 15:30 36.7 70 16 135/83 98 Room Air Physical Exam: General-awake; alert; NAD Eyes-EOMI; no scleral icterus Neck-no stridor; trachea midline Lungs-CTA bilaterally; no wheezes/crackles Heart-RRR; no m/r/g Abdomen-soft; mildly distended; mildly tender to palpation; nBS Extremities-no c/c/e; no deformity Neuro-no gross focal deficits Laboratory Results: Date/Time Source Procedure Growth Status 04/16/16 13:30 Stool C.difficile Toxin B Gene (PCR) - Final No C. difficile toxin B gene detected Complete Assessment & Plan Patient is a 46 y/o female who presented with acute pancreatitis. Acute pancreatitis - elevated lipase on admission - CT a/p suggestive of low grade pancreatitis - unclear etiology - only occasional EtOH use; last drink was 2 weeks ago - s/p cholecystectomy in 2004 - no offending medications identified (patient reports only taking OTC vitamins) - fasting lipids normal - GI consulted - discontinue IVF's - advance diet as patient tolerates - Dilaudid and Toradol PRN pain - Cdiff negative DVT prophylaxis with SCD's and ambulation. Anticipate discharge tomorrow. Consultants: Gastroenterology Procedures: CT a/p 1. Nonobstructive bowel pattern. 2. Trace peripancreatic infiltrative change and fluid raising the possibility of low-grade pancreatitis. 3. Correlation with pancreatic enzymes status is recommended. 4. Otherwise negative study status post cholecystectomy. CT chest 1. No CT evidence of acute pulmonary embolism 2. Bilateral pleural effusions with associated bibasal airspace opacities statistically atelectatic Current Inpatient Medications: Current Inpatient Medications Medications (Trade) Dose Ordered Sig/Maurilio Route Start Time Stop Time Status Last Admin Dose Admin Ondansetron HCl (Zofran Inj) 4 mg Q6H PRN IV 04/12/16 08:30 05/12/16 08:29 04/13/16 16:02 4 MG Ketorolac Tromethamine (Toradol Inj) 30 mg Q6H PRN IV 04/12/16 08:30 04/17/16 08:29 04/15/16 21:39 30 MG Hydromorphone HCl 1 mg 1 mg Q3HWA PRN IV 04/12/16 08:30 04/26/16 08:29 04/13/16 20:06 1 MG Promethazine HCl/ Sodium Chloride (Phenergan Inj/ Nss 50ml) 51 ml @ 204 mls/hr Q6H PRN IV 04/12/16 15:30 05/12/16 15:29 04/12/16 20:07 204 MLS/HR Metoclopramide HCl (Reglan Inj) 5 mg Q6H PRN IV 04/13/16 13:15 05/13/16 13:14 04/16/16 04:55 5 MG Senna/Docusate Sodium (Senokot S Tab) 1 tab QAM PO 04/13/16 14:00 05/13/16 13:59 Future Hold 04/15/16 13:06 1 TAB Ioversol (Optiray 320) 111 ml UD PRN IV 04/13/16 13:45 04/17/16 13:44 Polyethylene (Miralax Powder Packet) 17 gm DAILY PO 04/14/16 12:30 05/14/16 12:29 Future Hold 04/15/16 13:06 17 GM Sumatriptan Succinate (Imitrex Tab) 25 mg DAILY PRN PO 04/14/16 12:00 05/14/16 11:59 04/16/16 13:39 25 MG Saccharomyces Boulardii (Florastor Cap) 250 mg DAILY PO 04/16/16 12:00 05/16/16 11:59 04/16/16 12:06 250 MG Pantoprazole Sodium (Protonix Tab) 40 mg BID PO 04/16/16 21:00 05/16/16 20:59 Simethicone (Mylicon Chew Tab) 80 mg Q6H PRN PO 04/16/16 16:30 05/16/16 16:29
[2016-04-16] MEDS: KETOROLAC TROMETHAMINE 30 MG/ML VIAL IV PRN (17:59)
[2016-04-16 19:45] VITALS: O2SAT 98
[2016-04-16] MEDS: PANTOprazole SOD 40 MG TAB PO SCH (21:28)
[2016-04-16 22:55] VITALS: BP 116/73; PULSE 88; TEMP 36.7; O2SAT 95
[2016-04-17] MEDS: SUMATRIPTAN SUCCINATE 25 MG TAB PO PRN (05:27)
[2016-04-17 07:12] VITALS: BP 146/75; PULSE 84; TEMP 37.4; O2SAT 94
[2016-04-17] MEDS: SACCHAROMYCES BOUL (FLORASTOR) 250 MG CAP PO SCH (08:37)
[2016-04-17] MEDS: PANTOprazole SOD 40 MG TAB PO SCH (08:37)
--- NOTE | 2016-04-17 09:32 | Discharge Instructions ---
Discharge Instructions Admission Reason for Admission: Acute Pancreatitis Discharge Discharge Diagnosis / Problem: Acute pancreatitis Discharge Goals Goal(s): Decrease discomfort Activity Recommendations Activity Limitations: resume your previous activity . Instructions / Follow-Up Instructions / Follow-Up Please follow up with Family Medicine Dr. Ashley on April 20 at 11: 30am. Please eat yogurt daily to promote intestinal health. Current Hospital Diet Patient's current hospital diet: Low Fat Diet Discharge Diet Recommended Diet: Low Fat Diet Pending Studies Studies pending at discharge: no Laboratory Results Lipid Panel Test 04/13/16 05:40 Range/Units Triglycerides Level 48 0-150 mg/dl Cholesterol Level 96 0-200 mg/dl HDL Cholesterol 49 mg/dl Cholesterol/HDL Ratio 2.0 LDL Cholesterol, Calculated 37 mg/dl Work Instructions Additional Instructions: Please excuse Ms. Salvador from work duties from 04/12/16 until 04/23/16 due to hospitalizaiton. Medical Emergencies . Who to Call and When: Medical Emergencies: If at any time you feel your situation is an emergency, please call 911 immediately. . Non-Emergent Contact Non-Emergency issues call your: Primary Care Provider . . "Provider Documentation" section prepared by Dayanara Antonio. VTE Core Measure Inpt VTE Proph given/why not?: SCD's
--- NOTE | 2016-04-17 09:38 | Discharge Summary ---
Discharge Summary Admission Date: Apr 12, 2016 at 08:22 Discharge Date: Apr 17, 2016 Discharge Disposition: Home Principal Diagnosis: Acute pancreatitis Procedures: CT a/p 1. Nonobstructive bowel pattern. 2. Trace peripancreatic infiltrative change and fluid raising the possibility of low-grade pancreatitis. 3. Correlation with pancreatic enzymes status is recommended. 4. Otherwise negative study status post cholecystectomy. CT chest 1. No CT evidence of acute pulmonary embolism 2. Bilateral pleural effusions with associated bibasal airspace opacities statistically atelectatic Consultations: Gastroenterology Medication Reconciliation Continued Medications: Fluticasone Propionate (Nasal) (Flonase Allergy Relief) 50 Mcg/Act Spr 2 SPRAYS RODOLFO DAILY PRN for ALLERGIC REACTION Loratadine (Claritin) 10 Mg Tab 10 MG PO DAILY PRN for ALLERGIC REACTION, TAB Omeprazole (Prilosec) 20 Mg Cap 20 MG PO DAILY PRN for GI UPSET, #30 Tramadol (Ultram) 50 Mg Tab 100 MG PO Q6H PRN for Pain, TAB Admission Information HPI (per Admitting provider): Patient is a 46 y/o female with no significant PMHx who presents for evaluation of abdominal pain. Patient notes epigastric pain that radiates to the back. Pain started suddenly this morning. She has never experienced anything like this before. Pain was associated with nausea this morning. She denies any emesis. She drinks socially and her last drink was 2 weeks ago. She had a cholecystectomy in 2004. She denies any h/o autoimmune disorders personally or in her family. In the ED, lipase was elevated to 80K. CT a/p was suggestive of low grade pancreatitis. She was given Dilaudid for pain control and IVF's. Physical Exam (per Admitting): General- awake; alert; NAD Eyes- EOMI; no scleral icterus Neck- no stridor; trachea midline Lungs- CTA bilaterally; no wheezes/crackles Heart- RRR; no m/r/g Abdomen- soft; mild diffuse tenderness to palpation; no guarding; ND; nBS Back- no gross abnormalities Extremities- no c/c/e; no deformity Neuro- no gross focal deficits Skin- no appreciable rash or bruise . Hospital Course Patient is a 46 y/o female who presented with acute pancreatitis. Lipase was elevated on admission and CT a/p was suggestive of low grade pancreatitis. The etiology remained unclear. Patient noted occasional EtOH use, with her last drink 2 weeks prior to admission. She is s/p cholecystectomy in 2004. No offending medications were identified. Fasting lipids were normal. GI was consulted. Patient was managed conservatively with bowel rest, pain medications as needed and IVF's. Cdiff was negative (patient had frequent stooling after laxative use). Patient clinically improved and was felt stable for discharge with Family Medicine follow up. PE on discharge: General- awake; alert; NAD Eyes- EOMI; no scleral icterus Neck- no stridor; trachea midline Lungs- CTA bilaterally; no wheezes/crackles; slightly diminished at the bases Heart- RRR; no m/r/g Abdomen- soft; mildly distended; mildly diffusely tender to palpation; hypoactive bowel sounds Back- no gross abnormalities Extremities- 1+ edema of bilateral LE; no deformity Neuro- no gross focal deficits Skin- no appreciable rash or bruise . Total time spent on discharge = This includes examination of the patient, discharge planning, medication reconciliation, and communication with other providers. Discharge Instructions Discharge Instructions Admission Reason for Admission: Acute Pancreatitis Discharge Discharge Diagnosis / Problem: Acute pancreatitis Discharge Goals Goal(s): Decrease discomfort Activity Recommendations Activity Limitations: resume your previous activity . Instructions / Follow-Up Instructions / Follow-Up Please follow up with Family Medicine Dr. Ashley on April 20 at 11: 30am. Please eat yogurt daily to promote intestinal health. Current Hospital Diet Patient's current hospital diet: Low Fat Diet Discharge Diet Recommended Diet: Low Fat Diet Pending Studies Studies pending at discharge: no Laboratory Results Lipid Panel Test 04/13/16 05:40 Range/Units Triglycerides Level 48 0-150 mg/dl Cholesterol Level 96 0-200 mg/dl HDL Cholesterol 49 mg/dl Cholesterol/HDL Ratio 2.0 LDL Cholesterol, Calculated 37 mg/dl Work Instructions Additional Instructions: Please excuse Ms. Salvador from work duties from 04/12/16 until 04/23/16 due to hospitalizaiton. Medical Emergencies . Who to Call and When: Medical Emergencies: If at any time you feel your situation is an emergency, please call 911 immediately. . Non-Emergent Contact Non-Emergency issues call your: Primary Care Provider . . "Provider Documentation" section prepared by Dayanara Antonio. VTE Core Measure Inpt VTE Proph given/why not?: SCD's Additional Copies To Iggy Ashley MD
[2016-04-17 09:55] VITALS: BP 146/75; PULSE 84; TEMP 37.4; O2SAT 94
== END 2016-04-17 11:15 | disposition home or self-care (01) | DRG 439 ==
LOC: ENRESERVDT → ENRESERVTM → C.EDB 05:35 → C.MSN 08:22
PROVIDERS: ADMIT Internal Medicine; ATTEND Internal Medicine
DX: K85.90 Acute pancreatitis without necrosis or infection, unspecified (principal); J98.11 Atelectasis; R09.02 Hypoxemia; Z90.49 Acquired absence of other specified parts of digestive tract; Z87.891 Personal history of nicotine dependence

== ENCOUNTER → 2017-04-11 | Day surgery (SDC) | payer SELFPAY ==
[2017-03-18 14:51] VITALS: Ht 160 cm; Wt 77.3 kg
[~2017-04-11] VITALS: Ht 160 cm; Wt 77.3 kg
[~2017-04-11] MED LIST changes: -ALBU1AER9 INH; +ASCA500 PO; -ASCO500T16 PO; +CHOL1000 PO; -CHOL400C7 PO; +DICY10CA55 PO; +ECHI1CAP PO; +MAGN250T3 PO; -OXYC-57 PO; +RIZA10TA18 PO; -VITA400C3 PO; -VITATAB19 PO
== END | disposition home or self-care (01) ==
LOC: EDSTATUS 07:00 → C.PAT 15:13
PROVIDERS: ATTEND Orthopaedic Surgery
DX: Z53.09 Procedure and treatment not carried out because of other contraindication (principal)

== ENCOUNTER 2022-06-05 03:53 | Observation (INO) ==
[2022-06-05] MEDS ORDERED: DEXAMETHASONE SOD INJ 4 MG/ML VIAL IV STA (04:14)
[2022-06-05] MEDS ORDERED: FAMOTIDINE 20MG IV PUSH 20 MG/5 ML SYR IV STA (04:14)
[2022-06-05] MEDS ORDERED: diphenhydrAMINE 50 MG/ML VIAL IV STA (04:14)
[2022-06-05 04:54] LABS: Basophils # (auto) 0.02 K/uL (0-0.2); Basophils % (auto) 0.2 %; Eosinophils # (auto) 0.08 K/uL (0-0.50); Eosinophils % (auto) 0.6 %; Hematocrit (blood only) 45.8 % (37.0-47.0); Hemoglobin 16.2 g/dl (12.0-16.0); Immature Granulocytes # (auto) 0.05 K/uL (0.01-0.20); Immature Granulocytes % (auto) 0.4 %; Lymphocytes # (auto) 3.26 K/uL (1.2-3.4); Mean Corpuscular Hemoglobin 28.7 pg (25.0-34.0); Mean Corpuscular Hgb Conc 35.4 g/dL (32.0-36.0); Mean Corpuscular Volume 81.2 fL (80.0-100.0); Mean Platelet Volume 10.1 fL (9.4-12.4); Monocytes # (auto) 0.75 K/uL (0.11-0.59); Monocytes % (auto) 5.8 %; Neutrophils # (auto) 8.88 K/uL (1.40-6.50); Platelet Count 392 K/uL (130-400); RDW Coefficient of Variation 12.6 % (11.5-14.5); RDW Standard Deviation 37.3 fL (36.4-46.3); Red Blood Count 5.64 M/uL (4.20-5.40); White Blood Count 13.04 K/ul (4.8-10.8)
[2022-06-05 05:01] LABS: iSTAT Creatinine 0.7 mg/dl (0.6-1.3); iSTAT Ionized Calcium 1.24 mmol/l (1.12-1.32); iSTAT Potassium 3.6 mmol/L (3.3-5.0)
--- NOTE | 2022-06-05 05:02 | Emergency Department Note ---
Impression & Plan Left-sided chest pain, Urticaria, Diarrhea Admit to the [facility] ED Provider Note NAME: YULIET REES AGE: 52 SEX: F ARRIVES VIA: Walk-In INFORMANT: Patient and her house ED PROVIDER(S): Oxana Arreola DO CHIEF COMPLAINT: Chest pain, diarrhea, rash PLAN: Disposition: Admit to the [facility] Condition: Fair MEDICAL DECISION MAKING: This is a 52-year-old female patient presents to the emergency department after having woken up with diarrhea and a rash and then developing chest pain. Patient had an EKG which was unchanged from previous EKGs. She had a rash that was consistent with diffuse urticaria. She is unsure what the possible cause of the rash might be. She was given a dose of IV Decadron, IV Pepcid, and IV Benadryl. Chest x-ray was unremarkable. Patient was given a dose of sublingual nitroglycerin which did relieve some of her left-sided chest discomfort. Patient does have a significant family history of heart disease as her father had his first CO at age 45 and had double vessel bypass at that age. Laboratory studies revealed a mild leukocytosis with a white blood cell count of 13. Hemoglobin was elevated at 16.2. Renal function was normal. LFTs were normal. Troponin was negative. Patient does have a history of pancreatitis but lipase was normal. I discussed the case with the [facility] and they will evaluate for further management. Triage Nursing notes reviewed and agree with them. Additional history obtained from patient's External medical records reviewed in [facility] Vital Signs: reviewed and unremarkable Differential diagnosis: Acute allergic reaction, anaphylaxis, cardiac ischemia, GERD ER treatment provided: Cardiac monitoring Twelve-lead EKG IV Pepcid IV Benadryl IV Decadron Oral aspirin Sublingual nitro Diagnostics interpreted by me: ECG: Sinus tachycardia at [address] segment depression or signs of ischemia. There is no ST segment elevation's EKG was compared to one from July 2020. There were no significant changes noted. There is no ectopy Cardiac Monitoring: Normal sinus rhythm at a rate of 73. Laboratory studies: See below Imaging studies: As per my independent interpretation Portable chest x-ray: No cardiomegaly HPI: 52/F arrives for evaluation of chest pain, rash, diarrhea. Patient states that she woke around 1 AM in the morning with an episode of diarrhea and noticed that she had itchy palms. She then developed a diffuse urticarial rash. She tried to lay back down but around 3:20 AM developed a squeezing chest pain. By history, she describes having a diarrheal illness mid last week. Those symptoms had since resolved. Diarrhea started again 24-48 hours ago. PAST MEDICAL HISTORY:See Below PAST SURGICAL HISTORY:See Below FAMILY HISTORY:See Below SOCIAL HISTORY:See Below HOME MEDICATIONS:See list ALLERGIES:See list VITALS:See Below PHYSICAL EXAMINATION: HEENT: Head - normocephalic and atraumatic. Pupils are equal, round, and reactive to light. Extraocular eye muscles are intact, and sclera are anic teric. Nose - moist nasal mucosa without discharge. Mouth - moist buccal mucosa. Oropharynx is nonerythematous and there is no tonsillar exudate or edema noted. Neck: Supple; no JVD or cervical lymphadenopathy Heart: Regular rate and rhythm. There is a normal S1 and S2 with no murmurs, clicks, or gallops appreciated. Lungs: Clear to auscultation bilaterally with no wheezes, rales, or rhonchi. Abdomen: Soft, diffuse mild tenderness, nondistended, with good bowel sounds. There are no palpable pulsatile masses or hepatosplenomegaly. There is no guarding, rigidity, or rebound noted. Extremities: No evidence of cyanosis, clubbing, or edema. There are easily palpable peripheral pulses. Skin: Diffuse urticaria ED COURSE: Times/Reassessments: 0400. The patient was evaluated in room B4. A complete history and physical was performed. A twelve-lead EKG was obtained as described above. An order was placed for continuous cardiac monitoring. The patient was in a normal sinus rhythm at a rate of 73. An IV lock was initiated and labs were drawn as above. Patient was given dose of IV Pepcid, IV Benadryl, and IV Decadron. A chest x-ray was performed. Patient was given a dose of sublingual nitro for her chest discomfort. This did relieve the chest pain. She was then given baby aspirin. I discussed the case with the [facility]ist and they will evaluate for further management. Oxana Arreola DO Past Med/Surg History Medical History (Updated 06/05/22 @ 08:39 by Oxana Arreola DO) Acute pancreatitis Chronic back pain (04/30/12) Hx of migraines (04/30/12) Surgical History History of cholecystectomy (04/30/12) Social History Smoking Status: Former smoker Preferred Language: Wolof Feels Safe at Home: Yes Allergies Allergies Allergy/AdvReac Type Severity Reaction Status Date / Time morphine AdvReac Intermediate CHEST PAIN Verified 03/28/22 18:46 Home Meds Home Medications Medication Instructions Recorded Confirmed cholecalciferol (vitamin D3) 25 25 mcg PO DAILY 07/14/20 03/28/22 mcg (1,000 unit) tablet (Vitamin D3) omeprazole 20 mg capsule,delayed 20 mg PO BID 07/14/20 03/28/22 release rizatriptan 10 mg disintegrating 10 mg PO DIRECTED PRN Migraine 07/14/20 03/28/22 tablet Headache echinacea 400 mg capsule 0 mg PO BID 03/28/22 03/28/22 Results & Data (ED) Vital Signs Vital Signs - 24 hr 06/05/22 03:56 06/05/22 04:10 06/05/22 04:10 Temperature 36.8 C Temperature Source Temporal Artery Scan Pulse Rate 100 H Pulse Rate [Finger] Pulse Rhythm [Finger] Pulse Strength [Finger] Respiratory Rate 20 Respiratory Effort / Characteristics Non-Labored Respiratory Depth Normal Respiratory Pattern Blood Pressure 116/66 Blood Pressure [Right Arm] Blood Pressure Mean 82 Blood Pressure Mean [Right Arm] Blood Pressure Position [Right Arm] Pulse Oximetry 98 99 99 Oxygen Delivery Method Room Air Room Air Room Air Sepsis Recent Fever Within 48 Hours No Sepsis New/Unexplained Change in Mental Status N/A Sepsis Action Taken by Nursing No Action Required 06/05/22 05:42 06/05/22 07:00 Temperature Temperature Source Pulse Rate Pulse Rate [Finger] 70 73 Pulse Rhythm [Finger] Regular Pulse Strength [Finger] Normal Respiratory Rate 18 16 Respiratory Effort / Characteristics Non-Labored Respiratory Depth Normal Respiratory Pattern Regular Blood Pressure Blood Pressure [Right Arm] 126/69 101/63 Blood Pressure Mean Blood Pressure Mean [Right Arm] 88 75 Blood Pressure Position [Right Arm] Lying Pulse Oximetry 96 95 Oxygen Delivery Method Room Air Room Air Sepsis Recent Fever Within 48 Hours Sepsis New/Unexplained Change in Mental Status Sepsis Action Taken by Nursing Laboratory Data 06/05/22 04:40 06/05/22 04:40 Lab Results 06/05/22 06/05/22 06/05/22 Range/Units 04:40 04:40 04:40 WBC 13.04 H (4.8-10.8) K/ul RBC 5.64 H (4.20-5.40) M/uL Hgb 16.2 H (12.0-16.0) g/dl POC Hgb (12.0-16.0) g/dl Hct 45.8 (37.0-47.0) % POC Hct (37-47) % MCV 81.2 (80.0-100.0) fL MCH 28.7 (25.0-34.0) pg MCHC 35.4 (32.0-36.0) g/dL RDW Std Deviation 37.3 (36.4-46.3) fL RDW Coeff of Marilynn 12.6 (11.5-14.5) % Plt Count 392 (130-400) K/uL MPV 10.1 (9.4-12.4) fL Immature Gran % (Auto) 0.4 % Neut % (Auto) 68.0 % Lymph % (Auto) 25.0 % [place] % (Auto) 5.8 % Eos % (Auto) 0.6 % Baso % (Auto) 0.2 % Neut # (Auto) 8.88 H (1.40-6.50) K/uL Lymph # (Auto) 3.26 (1.2-3.4) K/uL [place] # (Auto) 0.75 H (0.11-0.59) K/uL Eos # (Auto) 0.08 (0-0.50) K/uL Baso # (Auto) 0.02 (0-0.2) K/uL Immature Gran # (Auto) 0.05 (0.01-0.20) K/uL PT 11.1 (9.0-12.0) Seconds INR 1.0 (0.9-1.1) APTT 26.4 (21.0-31.0) Seconds PTT Ratio 1.0 POC Sodium (135-144) mmol/L Sodium 138 (136-145) mmol/L POC Potassium (3.3-5.0) mmol/L Potassium 3.7 (3.5-5.1) mmol/L POC Chloride (101-112) mmol/L Chloride 110 H (98-107) mmol/L Carbon Dioxide 19 L (21-32) mmol/L POC Total CO2 (24-31) mmol/L Anion Gap 9 (3-11) POC Anion Gap (16-25) mmol/L POC BUN (7-18) mg/dl BUN 13 (6-23) mg/dl Creatinine 0.82 (0.6-1.2) mg/dl POC Creatinine (0.6-1.3) mg/dl Est Cr Clr Drug Dosing 81.6 ml/min Est GFR ( Amer) 96.0 ml/min Est GFR (Non-Af Amer) 82.9 ml/min BUN/Creatinine Ratio 15.9 (10-20) Glucose 121 H (70-99(Fasting)) mg/dl POC Glucose (other) (70-99) mg/dl Calcium 9.0 (8.6-10.3) mg/dl POC Ioniz Calcium Catherine (1.12-1.32) mmol/l Magnesium 2.0 (1.7-2.4) mg/dl Total Bilirubin 0.5 (0.2-1.0) mg/dl AST 26 (13-39) U/L ALT 32 (7-52) U/L Alkaline Phosphatase 58 (34-104) U/L Total Creatine Kinase 202 H (26-192) U/L Troponin I High Sens 3.6 (0-14) pg/ml Total Protein 7.8 (6.0-8.3) gm/dl Albumin 4.4 (3.4-5.0) gm/dl Globulin 3.4 (2.5-4.0) gm/dl Albumin/Globulin Ratio 1.3 (0.9-2) Lipase 76 (11-82) U/L TSH (0.300-4.500) uIu/ml 06/05/22 06/05/22 Range/Units 04:40 04:47 WBC (4.8-10.8) K/ul RBC (4.20-5.40) M/uL Hgb (12.0-16.0) g/dl POC Hgb 16.0 (12.0-16.0) g/dl Hct (37.0-47.0) % POC Hct 47 (37-47) % MCV (80.0-100.0) fL MCH (25.0-34.0) pg MCHC (32.0-36.0) g/dL RDW Std Deviation (36.4-46.3) fL RDW Coeff of Marilynn (11.5-14.5) % Plt Count (130-400) K/uL MPV (9.4-12.4) fL Immature Gran % (Auto) % Neut % (Auto) % Lymph % (Auto) % [place] % (Auto) % Eos % (Auto) % Baso % (Auto) % Neut # (Auto) (1.40-6.50) K/uL Lymph # (Auto) (1.2-3.4) K/uL [place] # (Auto) (0.11-0.59) K/uL Eos # (Auto) (0-0.50) K/uL Baso # (Auto) (0-0.2) K/uL Immature Gran # (Auto) (0.01-0.20) K/uL PT (9.0-12.0) Seconds INR (0.9-1.1) APTT (21.0-31.0) Seconds PTT Ratio POC Sodium 142 (135-144) mmol/L Sodium (136-145) mmol/L POC Potassium 3.6 (3.3-5.0) mmol/L Potassium (3.5-5.1) mmol/L POC Chloride 110 (101-112) mmol/L Chloride (98-107) mmol/L Carbon Dioxide (21-32) mmol/L POC Total CO2 21 L (24-31) mmol/L Anion Gap (3-11) POC Anion Gap 16.0 (16-25) mmol/L POC BUN 12 (7-18) mg/dl BUN (6-23) mg/dl Creatinine (0.6-1.2) mg/dl POC Creatinine 0.7 (0.6-1.3) mg/dl Est Cr Clr Drug Dosing ml/min Est GFR ( Amer) ml/min Est GFR (Non-Af Amer) ml/min BUN/Creatinine Ratio (10-20) Glucose (70-99(Fasting)) mg/dl POC Glucose (other) 123 H (70-99) mg/dl Calcium (8.6-10.3) mg/dl POC Ioniz Calcium Catherine 1.24 (1.12-1.32) mmol/l Magnesium (1.7-2.4) mg/dl Total Bilirubin (0.2-1.0) mg/dl AST (13-39) U/L ALT (7-52) U/L Alkaline Phosphatase (34-104) U/L Total Creatine Kinase (26-192) U/L Troponin I High Sens (0-14) pg/ml Total Protein (6.0-8.3) gm/dl Albumin (3.4-5.0) gm/dl Globulin (2.5-4.0) gm/dl Albumin/Globulin Ratio (0.9-2) Lipase (11-82) U/L TSH 1.056 (0.300-4.500) uIu/ml Administered Medications Discontinued Medications Aspirin (Aspirin Chew 324 Mg) 324 mg PO NOW STA Stop: 06/05/22 06:20 Last Admin: 06/05/22 06:25 Dose: 324 mg Documented By: CLEMENCIA Dexamethasone (Dexamethasone Sod Inj 4 Mg/Ml Vial) 10 mg IV NOW STA Stop: 06/05/22 04:15 Last Admin: 06/05/22 04:27 Dose: 10 mg Documented By: CLEMENCIA Diphenhydramine HCl (Diphenhydramine 50 Mg/Ml Vial) 50 mg IV NOW STA Stop: 06/05/22 04:15 Last Admin: 06/05/22 04:27 Dose: 50 mg Documented By: CLEMENCIA Famotidine (Pepcid 20mg Iv Push) 20 mg in 5 mls @ 2.5 mls/min IV NOW STA Stop: 06/05/22 04:15 Last Admin: 06/05/22 04:27 Dose: 2.5 mls/min Documented By: CLEMENCIA Nitroglycerin (Nitroglycerin Sl 0.4 Mg/Tab Tab) 0.4 mg SL NOW STA Stop: 06/05/22 05:53 Last Admin: 06/05/22 05:55 Dose: 0.4 mg Documented By: CLEMENCIA Imaging Data Radiologist's Impression: Chest X-Ray 06/05/22 04:15 XR chest 1V portable CLINICAL HISTORY: Chest pain, nonspecific COMPARISON STUDY: Chest radiograph July 14, 2020. Chest CT April 13, 2016. FINDINGS: Lung volumes are normal. There is no consolidation to suggest pneumonia. Minimal linear right basilar density favors atelectasis. There is no pneumothorax or pleural effusion. Cardiac size is normal. Mediastinal contours are normal. There is no evidence for pulmonary edema. IMPRESSION: No acute cardiopulmonary findings. ACT 112: Negative or not required by law. Electronically signed by: Dwayne Montes M.D. 06/05/2022 7:30 AM Discharge Plan Visit Data Chief Complaint: Illness Stated Complaint: DIARRHEA,RASH,PAINS UPPER CENTER CHEST ED Provider: Oxana Arreola Discharge Problem: Left-sided chest pain, Urticaria, Diarrhea Discharge Instructions Interventions: ED Discharge Assessment Last Done: 06/05/22 08:12 Diarrhea Qualifiers: Diarrhea type: unspecified type Qualified Code(s): R19.7 - Diarrhea, unspecified
[2022-06-05 05:11] LABS: Albumin Globulin Ratio 1.3 (0.9-2); Albumin Level 4.4 gm/dl (3.4-5.0); BUN Creatinine Ratio 15.9 (10-20); Bilirubin,Total 0.5 mg/dl (0.2-1.0); Creatinine Clr Calc Pharmacy 81.6 ml/min; Est GFR (Non-African American) 82.9 ml/min; Globulin 3.4 gm/dl (2.5-4.0); Potassium 3.7 mmol/L (3.5-5.1); Total Protein 7.8 gm/dl (6.0-8.3)
[2022-06-05 05:17] LABS: Troponin I High Sensitivity 3.6 pg/ml (0-14)
[2022-06-05 05:25] LABS: Partial Thromboplastin Time 26.4 Seconds (21.0-31.0); Prothrombin Time 11.1 Seconds (9.0-12.0)
[2022-06-05] MEDS ORDERED: NITROGLYCERIN SL 0.4 MG/TAB TAB SL STA (05:52)
[2022-06-05] MEDS ORDERED: ASPIRIN CHEW 324 MG PO STA (06:19)
--- NOTE | 2022-06-05 07:31 | XRay Report ---
XR chest 1V portable CLINICAL HISTORY: Chest pain, nonspecific COMPARISON STUDY: Chest radiograph July 14, 2020. Chest CT April 13, 2016. FINDINGS: Lung volumes are normal. There is no consolidation to suggest pneumonia. Minimal linear rig ht basilar density favors atelectasis. There is no pneumothorax or pleural effusion. Cardiac size is normal. Mediastinal contours are normal. There is no evidence for pulmonary edema. IMPRESSION: No acute cardiopulmonary findings. ACT 112: Negative or not required by law. Electronically signed by: Dwayne Montes M.D. 06/05/2022 7:30 AM
[2022-06-05] MEDS ORDERED: ACETAMINOPHEN 325 MG TAB PO PRN (08:12)
[2022-06-05] MEDS ORDERED: diphenhydrAMINE 50 MG/ML VIAL IV PRN (08:12)
[2022-06-05] MEDS ORDERED: NITROGLYCERIN SL 0.4 MG/TAB TAB SL PRN (08:12)
--- NOTE | 2022-06-05 08:45 | History and Physical Report ---
DATE OF ADMISSION: 06/05/2022. CHIEF COMPLAINT: Chest pain, rash, diarrhea. HISTORY OF PRESENT ILLNESS: This is a 52-year-old female with past medical history significant for GERD, irritable bowel syndrome with diarrhea, migraines, history of depression, history of pancreatitis, history of mild tricuspid regurgitation, history of COVID-19, presents with chest pain around 3:00 a.m. today. The patient says she had stomach flu last Saturday; last Saturday and Saturday, she had profuse diarrhea then she felt better for a few days, back in Saturday, diarrhea started back, had several episodes. Stool is yellow color and also has abdominal discomfort. No nausea or vomiting . Today around 3:00 a.m., she had developed diffuse itchy macular rash and at the same time, she felt chest tightness, moderate in severity, no radiation, no shortness of breath, no dizziness. For this reason, she came to the ER. In the ER, after nitro, the chest pain is getting better. She was also treated for rash with Decadron, Benadryl, Pepcid. Rash is improving. Itchiness is improving. Currently resting comfortably, hemodynamically stable. Denies any headache. No blurred visions, no runny nose, no sore throat, no cough, no fever, no shortness of breath, no nausea. Normal bladder movements. The patient says she is not allergic to any foods and also she takes omeprazole and multivitamins and there is no recent change in medications. ALLERGIES: TO MORPHINE. PAST MEDICAL HISTORY: As mentioned above. PAST SURGICAL HISTORY: Breast biopsy, left benign colonoscopy, EGDs, EGD with endoscopic ultrasound, laparoscopic cholecystectomy, knee meniscectomy. MEDICATIONS: The patient takes omeprazole 20 mg p.o. b.i.d., vitamin D, echinacea, vitamin E. FAMILY HISTORY: Significant for father had carcinoid tumor of the stomach and bowel, colon polyps, elevated lipids, heart disorder, hypertension, irritable bowel syndrome; mother has hypertension; sister has hysterectomy. SOCIAL HISTORY: . Quit smoking in 2012, smoked half pack a day for 22 years. Alcohol, rarely. No drug use. REVIEW OF SYSTEMS: As per HPI. Rest of the review of systems is negative. PHYSICAL EXAMINATION: GENERAL: The patient is of moderate build, not in acute distress. VITAL SIGNS: Temperature 36.8, pulse 73, respiratory rate 16, blood pressure 101/63, oxygen 95% on room air. HEENT: Pupils equal, round and reactive to light. Oral mucosa moist. NECK: No JVD. No neck masses. CARDIOVASCULAR: S1 and S2 heard. Regular rate and rhythm. No murmur, no gallop. RESPIRATORY SYSTEM: Normal AP diameter. No accessory muscle use. No wheezing or crackles. ABDOMEN: Soft, bowel sounds present. Mild abdominal discomfort, no guarding, no rigidity, no distention. CENTRAL NERVOUS SYSTEM: Cranial nerves II-XII grossly intact, nonfocal. EXTREMITIES: No edema, no erythema. SKIN: Macular rash, urticarial kind of rash seen on extremities and on the trunk. LABORATORY DATA: WBC 13, hemoglobin 16.2, hematocrit 48.8, platelets 392. PT 11.1, INR 1, APTT 26.4. Sodium 138, potassium 3.7, chloride 110, BUN 13, creatinine 0.8, serum glucose 121, calcium 9, magnesium 2, total bilirubin 0.5, AST 26, ALT 32, alkaline phosphatase 58. Total creatinine kinase 202. Troponin I high sensitivity 3.6. Lipase 76. TSH is 1.05. SARS-CoV-2 rapid test negative. IMAGING DATA: Chest x-ray, no acute findings. EKG: Sinus tachycardia at a rate of 101, biatrial enlargement, nonspecific ST abnormalities. ASSESSMENT AND PLAN: This is a 52-year-old female who presents with chest pain and urticarial kind of rash and diarrhea. 1. Chest pain: Rule out ACS. Initial workup is negative. We will do serial enzymes, echocardiogram. Keep her n.p.o. Consult cardiology for further recommendation. Family hx of CAD. Monitor in the tele floor. 2. Diarrhea. Going on for the last Saturday, seemed to resolve couple of days, but again came back. Denies any bloody stools. We will check stool BioFire. Currently n.p.o., IV fluids. GI consult for persistent diarrhea. 3. Urticarial rash. Macular generalized rash and itchiness treated with IV Benadryl, IV Decadron and Pepcid in the ER, it is improving. No recent change of medications. No food allergies per the patient. We will continue with Zyrtec, p.o. prednisone, IV Benadryl p.r.n., and IV Pepcid and monitor. Need to follow up with PCP, Allergy Immunology on discharge. 4. Gastroesophageal reflux disease, currently placed on IV Pepcid. 5. History of irritable bowel syndrome. Follow up with GI. 6. History of migraine. 7. Deep venous thrombosis prophylaxis: SCDs. DISPOSITION: Observation in tele floor. Level 1 full code. Expect to discharge home and follow with family doctor. Job ID: [id number] [facility]
[2022-06-05] MEDS: SODIUM CHLORIDE 0.9% 1000ML 1,000 ML IV SCH ×2 (08:46→20:59)
[2022-06-05] MEDS ORDERED: FAMOTIDINE 20 MG in SYRINGE 3 ML IV SCH (09:00)
[2022-06-05] MEDS ORDERED: DICYCLOMINE HCL 10 MG CAP PO PRN (09:19)
--- NOTE | 2022-06-05 09:32 | Gastrointestinal Consultation ---
Date of Consultation June 05, 2022 Assessment & Plan (1) Diarrhea: Pt is a 52 yo female w hx of pancreatitis, IBS-D, GERD, who is seen today for diarrhea symptoms. LFTs, lipase normal. She had gastroenteritis symptoms last week with n/v/d. No longer having n/v and diarrhea slowed down. DDX: post infectious IBS, infectious diarrhea, overflow diarrhea 2/2 constipation - Check Stool cx, Cdiff - CT abd/pelvis w contrast - Trial Questran 4g BID - Dicyclomine 10mg BID prn cramping/pain - Supportive management - Diet as tolerated Supervising Physician Co-Signing Physician Notes Saw and evaluated the patient. We were consulted for evaluation of worsening diarrhea. The patient sounds like a viral gastroenteritis last week associated with nausea, vomiting and increasing diarrhea. The symptoms slowly abated however she developed loose to liquid stool several days ago which has persisted. She notes that this morning she is feeling much better however she decided to report to the emergency room due to chest discomfort and a new rash. Patient has had a fairly extensive evaluation for similar symptoms over the past few years, she did have a prior colonoscopy about 5 years ago in addition to endoscopies. Physical examination No obvious distress no Scleral icterus Impression patient presenting with a history of nausea, vomiting which has Improved. Would recommend stool studies for C. difficile and culture. In add ition there is a family history of carcinoid tumor and the patient is highly concerned about this thus a CT might be beneficial to ensure that we are not missing an occult mass. Would also recommend use of Questran 4 g/day and an outpatient colonoscopy in the next 8 to 12 weeks. Please call with any additional questions or concerns GI to sign off. recomendations: CT abddomen pelvis Questran 4 gm per day Stool for C diff / culture O and P OP colonoscopy Please call with any questions / GI to sign off. History of Present Illness Reason for Consultation: Diarrhea Requesting Physician: Dr. Merlin Griffin Attending Physician: Dr. Reginald King History of Present Illness Pt is a 52 yo female w PMHx including GERD, IBS-D, migrained, depression, pancreatitis, tricuspid regurgitation, hx of COVID, who presented w to ED w c/o chest pain symptoms. Report that last week, may have stomach flu w symptoms of n/v, diarrhea. No hematemesis or bloody stools. No new meds/antibx exposure. Diarrhea slowed down the last few days. This morning she woke up with mid chest pain which felt like she needs to "stretch the area", and also noted rashes. Cardiac workup negative, and after receiving nitro IV, chest pain is better. Pt is s/p cholecystectomy. Hx of IBS-D. She had her last colonoscopy in 2018 w findings of hyperplastic polyp. Previous EGD w small bowel bx showed no villi blunting. Father w hx of small bowel carcinomatosis Allergies Allergy/AdvReac Type Severity Reaction Status Date / Time morphine AdvReac Intermediate CHEST PAIN Verified 03/28/22 18:46 Home Medications Medication Instructions Recorded Confirmed Type cholecalciferol (vitamin D3) 25 25 mcg PO DAILY 07/14/20 03/28/22 History mcg (1,000 unit) tablet (Vitamin D3) omeprazole 20 mg capsule,delayed 20 mg PO BID 07/14/20 03/28/22 History release rizatriptan 10 mg disintegrating 10 mg PO DIRECTED PRN Migraine 07/14/20 03/28/22 History tablet Headache echinacea 400 mg capsule 0 mg PO BID 03/28/22 03/28/22 History Patient History Medical History Acute pancreatitis Chronic back pain (04/30/12) Hx of migraines (04/30/12) Surgical History History of cholecystectomy (04/30/12) Social History Smoking Status: Never smoker Preferred Language: Romansh Communication Ability: Effective 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 Beliefs That Will Affect Care: None Current Living Situation: Spouse Feels Safe at Home: Yes Safety Concerns: Feels Safe At This Time Review of Systems Review of Systems: All systems reviewed & are unremarkable except as noted in HPI & below Physical Exam Constitutional: WD/WN, vitals as above well groomed, cooperative and comfortable Eyes: PERRL, conjunctivae normal, anicteric sclerae ENMT: external ear and nose normal, oropharynx normal Respiratory: normal respiratory effort, lungs clear to auscultation Cardiovascular: RRR, no murmur, no edema Gastrointestinal (Abdomen): BS hypoactive, TTP generalized, soft Skin: no rashes, warm and dry no jaundice Psychiatric: A+Ox3, euthymic affect Lymphatic: no lymphedema Results & Data Vital Signs (Past 12 Hours) Vital Signs Temp Pulse Pulse Resp BP BP Pulse Ox 06/05/22 08:12 77 16 107/72 95 06/05/22 08:47 68 15 110/66 94 06/05/22 08:47 06/05/22 07:00 73 16 101/63 95 06/05/22 05:42 70 18 126/69 96 06/05/22 04:10 99 06/05/22 04:10 99 06/05/22 03:56 36.8 C 100 H 20 116/66 98 Pulse Ox O2 Del Method O2 Del Method 06/05/22 08:12 Room Air 06/05/22 08:47 Room Air 06/05/22 08:47 94 Room Air 06/05/22 07:00 Room Air 06/05/22 05:42 Room Air 06/05/22 04:10 Room Air 06/05/22 04:10 Room Air 06/05/22 03:56 Room Air (1) Diarrhea Diarrhea type: unspecified type Qualified Code(s): R19.7 - Diarrhea, unspecified
[2022-06-05] MEDS: ASPIRIN 81 MG ECTAB PO SCH (09:55)
[2022-06-05] MEDS: CETIRIZINE HCL 10 MG TABLET PO SCH (09:55)
--- NOTE | 2022-06-05 11:21 | Cardiology Consultation ---
Date of Consultation June 05, 2022 Assessment & Plan (1) Chest pain: (2) PVCs (premature ventricular contractions): (3) PAC (premature atrial contraction): (4) GERD (gastroesophageal reflux disease): (5) IBS (irritable bowel syndrome): Plan IMPRESSION: 52-year-old female who initially presented to the [facility] emergency department due to chest discomfort and significant diarrhea. Chest pain symptoms are atypical, high-sensitivity troponin normal, EKG unremarkable. Low likelihood for ACS at this time. PLAN: Symptoms appear to be more GI like in nature, will defer to GI regarding treatment and management. Agree with CT of the abdomen. Continue to monitor on telemetry- History of PACs/PVCs, ? symptomatic palpitations given hypovolemia from diarrheal illness Further recommendations pending echocardiogram. Should symptoms persist can consider repeat stress echo as an outpatient. Case discussed with Dr. Jane. No further cardiac recommendations at this time, cardiology will sign off. Supervising Physician Co-Signing Physician Notes I have reviewed the advance practitioner documentation and agree. I saw and evaluated the patient on the date of service referenced in the note and have performed a medically appropriate history and or exam. Echo was being completed during my visit. If the echocardiogram is unremarkable then I believe no additional cardiac testing is indicated. I agree the patient's chest discomfort is unlikely to be due to ACS. History of Present Illness Reason for Consultation: Chest pain Requesting Physician: Seema melton Attending Physician: Merlin Griffin MD History of Present Illness 52-year-old female presented to the emergency department early this morning due to an episode of chest discomfort that occurred around 1 AM. Patient does not have any prior cardiac history. Last week noted that she had the stomach flu on Saturday and Saturday with recurrent and persistent diarrheal symptoms on Saturday. She developed a diffuse macular rash at the same time and felt chest tightness. No shortness of breath or dizziness. Was given 1 sublingual nitroglycerin and Pepcid with relief in her symptoms and was also treated with Benadryl, Decadron with rash improvement. EKG 06/05/2022: Sinus tachycardia, [address] abnormality. Unchanged from prior EKG. Labs: Unremarkable including a negative high-sensitivity troponin of 3.6. Chest x-ray: No acute cardiopulmonary finding Echo: PENDING* Upon entrance into the room patient was resting comfortably in bed without acute concern. No further episodes of chest tightness. Diarrhea has ceased. She is prepping for a CT scan of the abdomen later today. No palpitations. No lightheadedness or dizziness. No orthopnea or PND, no lower extremity edema. TELE: Normal sinus rhythm, 70s to 80s Prior exercise stress echo completed 09/2020 for chest pains symptoms: Negative for inducible ischemia with occasional PVCs and PACs noted with stress. Resting study showed a normal LVEF of 55 to 59%. Mild TR Family history includes premature CAD in her father who underwent CABG x2 in his 40s. He is not currently 79. No primary orthopedic nurse. Past medical history: GERD IBS-D Migraines History of pancreatitis Mild TR Moderate PVC/PACs with stress per exercise stress echo 09/2020, nonischemic. Anxiety Allergies Allergy/AdvReac Type Severity Reaction Status Date / Time morphine AdvReac Intermediate CHEST PAIN Verified 03/28/22 18:46 Home Medications Medication Instructions Recorded Confirmed Type cholecalciferol (vitamin D3) 25 25 mcg PO DAILY 07/14/20 03/28/22 History mcg (1,000 unit) tablet (Vitamin D3) omeprazole 20 mg capsule,delayed 20 mg PO BID 07/14/20 03/28/22 History release rizatriptan 10 mg disintegrating 10 mg PO DIRECTED PRN Migraine 07/14/20 03/28/22 History tablet Headache echinacea 400 mg capsule 0 mg PO BID 03/28/22 03/28/22 History Patient History Medical History Acute pancreatitis Chronic back pain (04/30/12) Hx of migraines (04/30/12) Surgical History History of cholecystectomy (04/30/12) Social History Smoking Status: Never smoker Preferred Language: Guyanese Communication Ability: Effective Rn Maternal Child Required: No Beliefs That Will Affect Care: None Current Living Situation: Spouse Feels Safe at Home: Yes Safety Concerns: Feels Safe At This Time Review of Systems Review of Systems: All systems reviewed & are unremarkable except as noted in HPI & below Physical Exam Constitutional: WD/WN, vitals as above no acute distress Eyes: PERRL, conjunctivae normal, anicteric sclerae ENMT: external ear and nose normal, oropharynx normal Neck: normal visual inspection and trachea midline Respiratory: normal respiratory effort, lungs clear to auscultation no respiratory distress Auscultation: no crackles, no rales, no rhonchi and no wheezes Cardiovascular: RRR, no murmur, no edema Heart Sounds: normal S1 and normal S2; no murmur Vessels: no JVD Extremities: no edema Gastrointestinal (Abdomen): normal bowel sounds, soft, nontender, no hepatosplenomegaly Skin: no rashes, warm and dry Psychiatric: A+Ox3, euthymic affect Results & Data Vital Signs (Past 12 Hours) Vital Signs Temp Pulse Pulse Resp BP BP Pulse Ox 06/05/22 08:12 77 16 107/72 95 06/05/22 08:47 68 15 110/66 94 06/05/22 08:47 06/05/22 07:00 73 16 101/63 95 06/05/22 05:42 70 18 126/69 96 06/05/22 04:10 99 06/05/22 04:10 99 06/05/22 03:56 36.8 C 100 H 20 116/66 98 Pulse Ox O2 Del Method O2 Del Method 06/05/22 08:12 Room Air 06/05/22 08:47 Room Air 06/05/22 08:47 94 Room Air 06/05/22 07:00 Room Air 06/05/22 05:42 Room Air 06/05/22 04:10 Room Air 06/05/22 04:10 Room Air 06/05/22 03:56 Room Air Laboratory Results Cardiac Enzymes 06/05/22 Range/Units 04:40 AST 26 (13-39) U/L Troponin I High Sens 3.6 (0-14) pg/ml Coagulation 06/05/22 Range/Units 04:40 PT 11.1 (9.0-12.0) Seconds APTT 26.4 (21.0-31.0) Seconds CBC 06/05/22 Range/Units 04:40 WBC 13.04 H (4.8-10.8) K/ul RBC 5.64 H (4.20-5.40) M/uL Hgb 16.2 H (12.0-16.0) g/dl Hct 45.8 (37.0-47.0) % Plt Count 392 (130-400) K/uL Neut # (Auto) 8.88 H (1.40-6.50) K/uL Lymph # (Auto) 3.26 (1.2-3.4) K/uL [place] # (Auto) 0.75 H (0.11-0.59) K/uL Eos # (Auto) 0.08 (0-0.50) K/uL Baso # (Auto) 0.02 (0-0.2) K/uL Comprehensive Metabolic Panel 06/05/22 Range/Units 04:40 Sodium 138 (136-145) mmol/L Potassium 3.7 (3.5-5.1) mmol/L Chloride 110 H (98-107) mmol/L Carbon Dioxide 19 L (21-32) mmol/L BUN 13 (6-23) mg/dl Creatinine 0.82 (0.6-1.2) mg/dl Glucose 121 H (70-99(Fasting)) mg/dl Calcium 9.0 (8.6-10.3) mg/dl AST 26 (13-39) U/L ALT 32 (7-52) U/L Alkaline Phosphatase 58 (34-104) U/L Total Protein 7.8 (6.0-8.3) gm/dl Albumin 4.4 (3.4-5.0) gm/dl Intake and Output 06/04/22 06/05/22 06/05/22 22:59 06:59 14:59 Other: Weight 80.6 kg 80.6 kg Weight Measurement Method Chair Scale Chair Scale Patient Weight 06/06/22 06:59 Weight 80.6 kg Diagnostic Findings ANDREINA 09/2020 The stress echo is negative for inducible ischemia. The examination is adequate to evaluate the referral indication. Occasional PVCs were noted with stress. Occasional PACs were noted during stress. The qualitative LV ejection fraction is 55-59% (normal). The left ventricular cavity size is normal. The left ventricular ejection fraction increases normally with stress. Mild tricuspid regurgitation is present.
[2022-06-05] MEDS: CHOLESTYRAMINE LIGHT 4 GM PKT PO SCH ×2 (11:24→20:44)
--- NOTE | 2022-06-05 12:14 | Electrocardiogram Report ---
Test Reason : Blood Pressure : / mmHG Vent. Rate : 101 BPM Atrial Rate : 101 BPM P-R Int : 142 ms QRS Dur : 080 ms QT Int : 348 ms P-R-T Axes : 068 021 034 degrees QTc Int : 451 ms Sinus tachycardia Biatrial enlargement Diffuse Minor Nonspecific ST abnormality Abnormal ECG When compared with ECG of 14-JUL-2020 19:18, No significant change was found Confirmed by Dagoberto Evans ([id number]) on 06/05/2022 12:14:33 PM Referred By: REFERRED SELF Confirmed By:Dagoberto Evans
[2022-06-05] MEDS ORDERED: OPTIRAY 350 100ml IV ONE (12:44)
--- NOTE | 2022-06-05 13:51 | CT Scan Report ---
CT OF THE ABDOMEN AND PELVIS WITH CONTRAST CLINICAL HISTORY: Diarrhea, abdominal pain; family hx of carcinoid tumor. COMPARISON STUDY: CT of the abdomen and pelvis April 12, 2016 and abdominal radiographs April 042016. TECHNIQUE: Following IV administration of 82 mL of Optiray, axial images of the abdomen and pelvis we re obtained from the lung bases to the proximal femurs. Images were reviewed in the axial, sagittal, and coronal planes. IV contrast was administered without complication. Automated exposure control wa s utilized for the study. A dose lowering technique was utilized adhering to the principles of ALARA . Oral contrast was administered. CT DOSE: 821.64 mGycm FINDINGS: Lung bases are unremarkable. No pneumatosis, free air or portal venous gas is present. Mild biliary ductal dilatation is unchanged and likely related to cholecystectomy. No hepatic lesions are identified on this venous phase exam. Spleen, adrenal glands, right kidney and pancreas are normal. A 9 mm hypodense left renal lesion is too small to characterize but likely reflects a cyst. A few sma ll left renal calculi measure up to 4 mm. There are no ureteral calculi. The appendix is normal. The caliber and wall thickness of small and large bowel are normal. There is no evidence for a bowel obst ruction. No lymphadenopathy or mass within the abdomen or pelvis is present. A small amount of fluid within the pelvis is present. Major vasculature is patent. There are no suspicious osseous lesions. IMPRESSION: 1. No bowel obstruction. No bowel wall thickening. 2. No CT evidence for malignancy within the abdomen or pelvis. 3. Small amount of fluid within the pelvis, a nonspecific finding. 4. Left-sided nephrolithiasis. ACT 112: Negative or not required by law. Electronically signed by: Dwayne Montes M.D. 06/05/2022 1:50 PM
[2022-06-05 16:34] LABS: Adenovirus F 40/41 PCR Not Detected (NotDetected); Astrovirus PCR Not Detected (NotDetected); Campylobacter PCR Not Detected (NotDetected); Cryptosporidium PCR Not Detected (NotDetected); Cyclospora cayetanensis PCR Not Detected (NotDetected); Entamoeba histolytica PCR Not Detected (NotDetected); Enteroaggregative E.coli(EAEC) Not Detected (NotDetected); Enteropathogenic E.coli (EPEC) Not Detected (NotDetected); Enterotoxigenic E.coli (ETEC) Not Detected (NotDetected); Giardia lamblia PCR Not Detected (NotDetected); Plesiomonas shigelloides PCR Not Detected (NotDetected); Rotavirus A PCR Not Detected (NotDetected); Salmonella PCR Not Detected (NotDetected); Sapovirus PCR Not Detected (NotDetected); Shiga-like Toxin E.coli (STEC) Not Detected (NotDetected); Shigella/Enteroinvasive E.coli Not Detected (NotDetected); Vibrio cholerae PCR Not Detected (NotDetected); Vibrio species PCR Not Detected (NotDetected); Yersinia enterocolitica PCR Not Detected (NotDetected)
[2022-06-05 19:26] LABS: Norovirus GI/GII PCR DETECTED (NotDetected)
[2022-06-05] MEDS: FAMOTIDINE 20 MG in SYRINGE 3 ML IV SCH (20:55)
[2022-06-06 06:11] LABS: Basophils # (auto) 0.03 K/uL (0-0.2); Basophils % (auto) 0.3 %; Eosinophils # (auto) 0.21 K/uL (0-0.50); Eosinophils % (auto) 1.9 %; Hematocrit (blood only) 38.6 % (37.0-47.0); Hemoglobin 13.2 g/dl (12.0-16.0); Immature Granulocytes # (auto) 0.03 K/uL (0.01-0.20); Immature Granulocytes % (auto) 0.3 %; Lymphocytes # (auto) 3.34 K/uL (1.2-3.4); Mean Corpuscular Hemoglobin 28.8 pg (25.0-34.0); Mean Corpuscular Hgb Conc 34.2 g/dL (32.0-36.0); Mean Corpuscular Volume 84.1 fL (80.0-100.0); Mean Platelet Volume 9.7 fL (9.4-12.4); Monocytes # (auto) 0.56 K/uL (0.11-0.59); Neutrophils # (auto) 6.98 K/uL (1.40-6.50); Neutrophils % (auto) 62.5 %; Platelet Count 324 K/uL (130-400); RDW Coefficient of Variation 12.8 % (11.5-14.5); RDW Standard Deviation 38.5 fL (36.4-46.3); Red Blood Count 4.59 M/uL (4.20-5.40); White Blood Count 11.15 K/ul (4.8-10.8)
[2022-06-06 06:17] LABS: BUN Creatinine Ratio 15.2 (10-20); Calcium 8.5 mg/dl (8.6-10.3); Chol HDL Ratio 2.9 (0-5); Creatinine Clr Calc Pharmacy 84.7 ml/min; Est GFR (African American) 100.5 ml/min; Est GFR (Non-African American) 86.7 ml/min; Potassium 3.6 mmol/L (3.5-5.1)
[2022-06-06] MEDS: ASPIRIN 81 MG ECTAB PO SCH (08:48)
[2022-06-06] MEDS: FAMOTIDINE 20 MG in SYRINGE 3 ML IV SCH (08:48)
[2022-06-06] MEDS: CETIRIZINE HCL 10 MG TABLET PO SCH (08:48)
[2022-06-06] MEDS ORDERED: predniSONE 20 MG TAB PO SCH (09:00)
[2022-06-06] MEDS: SODIUM CHLORIDE 0.9% 1000ML 1,000 ML IV SCH (09:21)
--- NOTE | 2022-06-06 09:24 | Electrocardiogram Report ---
Test Reason : Blood Pressure : / mmHG Vent. Rate : 057 BPM Atrial Rate : 057 BPM P-R Int : 190 ms QRS Dur : 094 ms QT Int : 428 ms P-R-T Axes : 069 052 014 degrees QTc Int : 416 ms Sinus bradycardia Possible Old Septal infarct Abnormal ECG When compared with ECG of 05-JUN-2022 04:10, Vent. rate has decreased BY 44 BPM Borderline Criteria for Septal infarct is now Present Nonspecific ST abnormality no longer present Confirmed by Dagoberto Evans ([id number]) on 06/06/2022 9:24:08 AM Referred By: REFERRED SELF Confirmed By:Dagoberto Evans
[2022-06-06] MEDS: CHOLESTYRAMINE LIGHT 4 GM PKT PO SCH (11:26)
--- NOTE | 2022-06-06 13:10 | Hospitalist Progress Note ---
Date of Service June 06, 2022 Assessment & Plan (1) Diarrhea: Plan: Patient is a 52 yr old female who presents with chest pain and urticarial kind of rash and diarrhea. Chest pain PACs, PVCs Less likely ACS ? Symptomatic secondary to palpitations from PACs, PVCs -Echo showed no wall motion abnormality -Troponin negative -CXR:No acute cardiopulmonary findings. Appreciate cardiology input Chest pain resolved Norovirus infection Diarrhea secondary to above Irritable bowel disease likely contributed as well --CT ABD:No bowel obstruction. No bowel wall thickening. No CT evidence for malignancy within the abdomen or pelvis. Small amount of fluid within the pelvis, a nonspecific finding. Left-sided nephrolithiasis. -- Stool studies positive for norovirus Continue IV fluids as needed Tolerating diet Urticarial rash Macular generalized rash and itchiness Unclear etiology Received IV Decadron, Pepcid, Benadryl Will discharge on tapered dose of prednisone Rash resolved Advised to follow-up with allergy/immunology if has recurrence of rash GERD Continue PPI History of irritable bowel syndrome Appreciate GI input Follow-up as outpatient History of migraine. No acute symptoms DVT Px: SCDs CODE STATUS Full code Admission and Anticipated Discharge Date Admission Date: June 05, 2022 Subjective Patient is seen and examined at bedside States feeling much better today Generalized rash resolved Diarrhea much improved Chest pain resolved as well Denies nausea, vomiting, dyspnea, dizziness No other complaints Review of Systems Review of Systems: All systems reviewed & are unremarkable except as noted in Subjective Physical Exam Physical Exam: Physical Exam: Vitals signs as noted above General Appearance:Moderately built and nourished, no apparent distress Head: normocephalic, Atraumatic Eyes: normal inspection, EOMI Neck: supple, Trachea midline Respiratory/Chest: Normal breath sounds, CTA, No accessory muscle use Cardiovascular: S1, S2, No murmur Abdomen/GI:Soft, Non tender, Bowel sounds present Extremities/Musculoskeletal:normal inspection, no edema Neurologic/Psych:AAOX3, grossly no focal neurological deficits Skin: normal color, warm Results & Data Results & Data Vital Signs (Past 12 Hours) Vital Signs Temp Pulse Resp BP Pulse Ox O2 Del Method 06/06/22 12:00 36.7 C 65 18 108/76 98 Room Air 06/06/22 06:59 36.5 C 65 18 100/64 97 Room Air 06/06/22 02:41 36.6 C 70 18 103/58 L 98 Room Air Laboratory Results Short CBC 06/06/22 Range/Units 05:27 WBC 11.15 H (4.8-10.8) K/ul Hgb 13.2 D (12.0-16.0) g/dl Hct 38.6 (37.0-47.0) % Plt Count 324 (130-400) K/uL BMP 06/06/22 05:27 Sodium 141 Potassium 3.6 Chloride 111 H Carbon Dioxide 26 BUN 12 Creatinine 0.79 Glucose 95 Calcium 8.5 L (1) Diarrhea Diarrhea type: unspecified type Qualified Code(s): R19.7 - Diarrhea, unspecified
--- NOTE | 2022-06-06 19:17 | Discharge Summary ---
Date of Service June 06, 2022 Admission HPI Per Admitting Provider CHIEF COMPLAINT: Chest pain, rash, diarrhea. HISTORY OF PRESENT ILLNESS: This is a 52-year-old female with past medical history significant for GERD, irritable bowel syndrome with diarrhea, migraines, history of depression, history of pancreatitis, history of mild tricuspid regurgitation, history of COVID-19, presents with chest pain around 3:00 a.m. today. The patient says she had stomach flu last Saturday; last Saturday and Saturday, she had profuse diarrhea then she felt better for a few days, back in Saturday, diarrhea started back, had several episodes. Stool is yellow color and also has abdominal discomfort. No nausea or vomiting . Today around 3:00 a.m., she had developed diffuse itchy macular rash and at the same time, she felt chest tightness, moderate in severity, no radiation, no shortness of breath, no dizziness. For this reason, she came to the ER. In the ER, after nitro, the chest pain is getting better. She was also treated for rash with Decadron, Benadryl, Pepcid. Rash is improving. Itchiness is improving. Currently resting comfortably, hemodynamically stable. Denies any headache. No blurred visions, no runny nose, no sore throat, no cough, no fever, no shortness of breath, no nausea. Normal bladder movements. The patient says she is not allergic to any foods and also she takes omeprazole and multivitamins and there is no recent change in medications. Admission Exam Per Admitting Provider PHYSICAL EXAMINATION: GENERAL: The patient is of moderate build, not in acute distress. VITAL SIGNS: Temperature 36.8, pulse 73, respiratory rate 16, blood pressure 101/63, oxygen 95% on room air. HEENT: Pupils equal, round and reactive to light. Oral mucosa moist. NECK: No JVD. No neck masses. CARDIOVASCULAR: S1 and S2 heard. Regular rate and rhythm. No murmur, no gallop. RESPIRATORY SYSTEM: Normal AP diameter. No accessory muscle use. No wheezing or crackles. ABDOMEN: Soft, bowel sounds present. Mild abdominal discomfort, no guarding, no rigidity, no distention. CENTRAL NERVOUS SYSTEM: Cranial nerves II-XII grossly intact, nonfocal. EXTREMITIES: No edema, no erythema. SKIN: Macular rash, urticarial kind of rash seen on extremities and on the trunk. Principal Diagnosis Norovirus Infection Possible allergic reaction Chest Pain Discharge Data Allergies Allergy/AdvReac Type Severity Reaction Status Date / Time morphine AdvReac Intermediate CHEST PAIN Verified 03/28/22 18:46 Consultations 06/05/22 06:26 ED Decision to Admit Stat 06/05/22 08:12 Consult Cardiology Routine Consult Gastroenterology Routine Procedures Performed Laboratory Results WBC 11.15 K/ul (4.8-10.8) H 06/06/22 05:27 RBC 4.59 M/uL (4.20-5.40) 06/06/22 05:27 Hgb 13.2 g/dl (12.0-16.0) D 06/06/22 05:27 POC Hgb 16.0 g/dl (12.0-16.0) 06/05/22 04:47 Hct 38.6 % (37.0-47.0) 06/06/22 05:27 POC Hct 47 % (37-47) 06/05/22 04:47 MCV 84.1 fL (80.0-100.0) 06/06/22 05:27 MCH 28.8 pg (25.0-34.0) 06/06/22 05:27 MCHC 34.2 g/dL (32.0-36.0) 06/06/22 05:27 RDW Std Deviation 38.5 fL (36.4-46.3) 06/06/22 05:27 RDW Coeff of Marilynn 12.8 % (11.5-14.5) 06/06/22 05:27 Plt Count 324 K/uL (130-400) 06/06/22 05:27 MPV 9.7 fL (9.4-12.4) 06/06/22 05:27 Immature Gran % (Auto) 0.3 % 06/06/22 05:27 Neut % (Auto) 62.5 % 06/06/22 05:27 Lymph % (Auto) 30.0 % 06/06/22 05:27 Luna % (Auto) 5.0 % 06/06/22 05:27 Eos % (Auto) 1.9 % 06/06/22 05:27 Baso % (Auto) 0.3 % 06/06/22 05:27 Neut # (Auto) 6.98 K/uL (1.40-6.50) H 06/06/22 05:27 Lymph # (Auto) 3.34 K/uL (1.2-3.4) 06/06/22 05:27 Luna # (Auto) 0.56 K/uL (0.11-0.59) 06/06/22 05:27 Eos # (Auto) 0.21 K/uL (0-0.50) 06/06/22 05:27 Baso # (Auto) 0.03 K/uL (0-0.2) 06/06/22 05:27 Immature Gran # (Auto) 0.03 K/uL (0.01-0.20) 06/06/22 05:27 PT 11.1 Seconds (9.0-12.0) 06/05/22 04:40 INR 1.0 (0.9-1.1) 06/05/22 04:40 APTT 26.4 Seconds (21.0-31.0) 06/05/22 04:40 PTT Ratio 1.0 06/05/22 04:40 POC Sodium 142 mmol/L (135-144) 06/05/22 04:47 Sodium 141 mmol/L (136-145) 06/06/22 05:27 POC Potassium 3.6 mmol/L (3.3-5.0) 06/05/22 04:47 Potassium 3.6 mmol/L (3.5-5.1) 06/06/22 05:27 POC Chloride 110 mmol/L (101-112) 06/05/22 04:47 Chloride 111 mmol/L (98-107) H 06/06/22 05:27 Carbon Dioxide 26 mmol/L (21-32) 06/06/22 05:27 POC Total CO2 21 mmol/L (24-31) L 06/05/22 04:47 Anion Gap 4 (3-11) 06/06/22 05:27 POC Anion Gap 16.0 mmol/L (16-25) 06/05/22 04:47 POC BUN 12 mg/dl (7-18) 06/05/22 04:47 BUN 12 mg/dl (6-23) 06/06/22 05:27 Creatinine 0.79 mg/dl (0.6-1.2) 06/06/22 05:27 POC Creatinine 0.7 mg/dl (0.6-1.3) 06/05/22 04:47 Est Cr Clr Drug Dosing 84.7 ml/min 06/06/22 05:27 Est GFR ( Amer) 100.5 ml/min 06/06/22 05:27 Est GFR (Non-Af Amer) 86.7 ml/min 06/06/22 05:27 BUN/Creatinine Ratio 15.2 (10-20) 06/06/22 05:27 Glucose 95 mg/dl (70-99(Fasting)) 06/06/22 05:27 POC Glucose (other) 123 mg/dl (70-99) H 06/05/22 04:47 Calcium 8.5 mg/dl (8.6-10.3) L 06/06/22 05:27 POC Ioniz Calcium Catherine 1.24 mmol/l (1.12-1.32) 06/05/22 04:47 Magnesium 2.0 mg/dl (1.7-2.4) 06/06/22 05:27 Total Bilirubin 0.5 mg/dl (0.2-1.0) 06/05/22 04:40 AST 26 U/L (13-39) 06/05/22 04:40 ALT 32 U/L (7-52) 06/05/22 04:40 Alkaline Phosphatase 58 U/L (34-104) 06/05/22 04:40 Total Creatine Kinase 202 U/L (26-192) H 06/05/22 04:40 Troponin I High Sens 3.4 pg/ml (0-14) 06/05/22 14:22 Total Protein 7.8 gm/dl (6.0-8.3) 06/05/22 04:40 Albumin 4.4 gm/dl (3.4-5.0) 06/05/22 04:40 Globulin 3.4 gm/dl (2.5-4.0) 06/05/22 04:40 Albumin/Globulin Ratio 1.3 (0.9-2) 06/05/22 04:40 Triglycerides 88 mg/dl (0-150) 06/06/22 05:27 Cholesterol 120 mg/dl (0-200) 06/06/22 05:27 LDL Cholesterol, Calc 61 mg/dl 06/06/22 05:27 VLDL Cholesterol, Calc 18 mg/dl (0-30) 06/06/22 05:27 HDL Cholesterol 41 mg/dl 06/06/22 05:27 Cholesterol/HDL Ratio 2.9 (0-5) 06/06/22 05:27 Lipase 76 U/L (11-82) 06/05/22 04:40 TSH 1.056 uIu/ml (0.300-4.500) 06/05/22 04:40 Stl C. cayetanensis PCR Not Detected (NotDetected) 06/05/22 14:35 Stool Rotavirus A PCR Not Detected (NotDetected) 06/05/22 14:35 Stl Adenov F PCR Not Detected (NotDetected) 06/05/22 14:35 Stool Astrovirus (PCR) Not Detected (NotDetected) 06/05/22 14:35 Stool Campylobacter PCR Not Detected (NotDetected) 06/05/22 14:35 Stl C. diff Tox B Gene Negative Cdiff Gene (Neg) 06/05/22 14:35 Stool Cryptosporidium PCR Not Detected (NotDetected) 06/05/22 14:35 Stl E.coli Shiga Tox PCR Not Detected (NotDetected) 06/05/22 14:35 Stl Enterotoxigenic E PCR Not Detected (NotDetected) 06/05/22 14:35 Stool EPEC (PCR) Not Detected (NotDetected) 06/05/22 14:35 Stool EAEC (PCR) Not Detected (NotDetected) 06/05/22 14:35 Stl E. histolytica PCR Not Detected (NotDetected) 06/05/22 14:35 Stool Giardia Lamblia PCR Not Detected (NotDetected) 06/05/22 14:35 Stool Salmonella PCR Not Detected (NotDetected) 06/05/22 14:35 Stool Sapovirus (PCR) Not Detected (NotDetected) 06/05/22 14:35 Stl P. shigelloides PCR Not Detected (NotDetected) 06/05/22 14:35 Stl Shigella/EIEC PCR Not Detected (NotDetected) 06/05/22 14:35 St Y.enterocolitica PCR Not Detected (NotDetected) 06/05/22 14:35 Stool Vibrio (PCR) Not Detected (NotDetected) 06/05/22 14:35 Stl Vibrio cholerae PCR Not Detected (NotDetected) 06/05/22 14:35 Stl Norovirus GI/GII PCR DETECTED (NotDetected) A* 06/05/22 14:35 SARS-CoV-2, RNA, NAAT NEGATIVE (NEGATIVE) 06/05/22 Unknown Impressions Chest X-Ray 06/05/22 04:15 XR chest 1V portable CLINICAL HISTORY: Chest pain, nonspecific COMPARISON STUDY: Chest radiograph July 14, 2020. Chest CT April 13, 2016. FINDINGS: Lung volumes are normal. There is no consolidation to suggest pneumonia. Minimal linear right basilar density favors atelectasis. There is no pneumothorax or pleural effusion. Cardiac size is normal. Mediastinal contours are normal. There is no evidence for pulmonary edema. IMPRESSION: No acute cardiopulmonary findings. ACT 112: Negative or not required by law. Electronically signed by: Dwayne Montes M.D. 06/05/2022 7:30 AM Abdomen/Pelvis CT 06/05/22 09:19 CT OF THE ABDOMEN AND PELVIS WITH CONTRAST CLINICAL HISTORY: Diarrhea, abdominal pain; family hx of carcinoid tumor. COMPARISON STUDY: CT of the abdomen and pelvis April 12, 2016 and abdominal radiographs April 15, 2016. TECHNIQUE: Following IV administration of 82 mL of Optiray, axial images of the abdomen and pelvis were obtained from the lung bases to the proximal femurs. Images were reviewed in the axial, sagittal, and coronal planes. IV contrast was administered without complication. Automated exposure control was utilized for the study. A dose lowering technique was utilized adhering to the principles of ALARA. Oral contrast was administered. CT DOSE: 821.64 mGycm FINDINGS: Lung bases are unremarkable. No pneumatosis, free air or portal venous gas is present. Mild biliary ductal dilatation is unchanged and likely related to cholecystectomy. No hepatic lesions are identified on this venous phase exam. Spleen, adrenal glands, right kidney and pancreas are normal. A 9 mm hypodense left renal lesion is too small to characterize but likely reflects a cyst. A few small left renal calculi measure up to 4 mm. There are no ureteral calculi. The appendix is normal. The caliber and wall thickness of small and large bowel are normal. There is no evidence for a bowel obstruction. No lymphadenopathy or mass within the abdomen or pelvis is present. A small amount of fluid within the pelvis is present. Major vasculature is patent. There are no suspicious osseous lesions. IMPRESSION: 1. No bowel obstruction. No bowel wall thickening. 2. No CT evidence for malignancy within the abdomen or pelvis. 3. Small amount of fluid within the pelvis, a nonspecific finding. 4. Left-sided nephrolithiasis. ACT 112: Negative or not required by law. Electronically signed by: Dwayne Montes M.D. 06/05/2022 1:50 PM Ordered Studies 06/05/22 09:19 CT abd pelvis oral and IV con Routine Hospital Course (1) Diarrhea: Patient is a 52 yr old female who presents with chest pain and urticarial kind of rash and diarrhea. Chest pain PACs, PVCs Less likely ACS ? Symptomatic secondary to palpitations from PACs, PVCs -Echo showed no wall motion abnormality -Troponin negative -CXR:No acute cardiopulmonary findings. Appreciate cardiology input Chest pain resolved Norovirus infection Diarrhea secondary to above Irritable bowel disease likely contributed as well --CT ABD:No bowel obstruction. No bowel wall thickening. No CT evidence for malignancy within the abdomen or pelvis. Small amount of fluid within the pelvis, a nonspecific finding. Left-sided nephrolithiasis. -- Stool studies positive for norovirus Continue IV fluids as needed Tolerating diet Urticarial rash Macular generalized rash and itchiness Unclear etiology Received IV Decadron, Pepcid, Benadryl Will discharge on tapered dose of prednisone Rash resolved Advised to follow-up with allergy/immunology if has recurrence of rash GERD Continue PPI History of irritable bowel syndrome Appreciate GI input Follow-up as outpatient History of migraine. No acute symptoms DVT Px: SCDs CODE STATUS Full code Total Time Total Time Spent Total Time Spent (In Minutes): 58 minutes Discharge Plan Discharge Items Patient Disposition: Home - Self-Care Reason For Visit: CHEST PAIN, RASH Discharge Diagnosis: Norovirus Infection Possible allergic reaction Chest Pain Activity: Per Instructions section Exercise/Sports: Gradually increase as tolerated Non-emergency contact: Primary Care Provider Call non-emergency contact if: you have any medication questions, your symptoms worsen, your pain is concerning for you and you have a fever Follow-up/Referrals: Iggy Ashley MD [Primary Care Provider] - Diet: Regular Addtl Attending Provider Instructions: Follow-up with your primary care physician in 1 week as advised Consider following with your allergy/personal computer specialist if you have recurrence of rash as advised Follow-up with your location manager if you have recurrence of chest pain as needed. -- Complete the prednisone course as prescribed. --Start taking prednisone 20 mg daily for 3 days, then take 10 mg daily for 3 days and stop -- Can use Benadryl as needed for allergic reactions as advised. Seek immediate medical attention if your symptoms reoccur or worsen Please take all medications as instructed on discharge list below. Please call if you have any questions or problems. You can reach a [facility] hospitalist on duty at [facility] 24 hours a day by calling [phone] Pending Studies at Discharge: No Stand-Alone Forms: My [facility] [place], Smoking Cessation Medications and DC Order Prescriptions: New cetirizine 10 mg Tablet 10 mg PO QAM Qty: 5 0RF prednisone 10 mg tablet 10 mg PO DIRECTED Qty: 9 0RF Rx Instructions: see taper instructions Start taking prednisone 20 mg daily for 3 days, then take 10 mg daily for 3 days and stop Continued rizatriptan 10 mg tablet,disintegrating 10 mg PO DIRECTED PRN (Reason: Migraine Headache) omeprazole 20 mg capsule,delayed release(DR/EC) 20 mg PO BID cholecalciferol (vitamin D3) [Vitamin D3] 25 mcg (1,000 unit) Tablet 25 mcg PO DAILY echinacea 400 mg Capsule 0 mg PO BID Rx Instructions: PT UNSURE OF STRENGTH. PT TAKES 2 CAPS BID. administer with meals Discharge Orders: Discharge Order (Routine); Ordered 06/06/22 Ordered By: Isael Ac Admission Data Admit Date/Time: 06/05/22 07:03 Attending Provider: Isael Ac Admit Provider: Surjit Washington Primary Care Provider: Iggy Ashley Other Providers: Surjit Washington ; Yohana Ramirez ; Leroy Faulkner ; [place] ; Franki Bess ; Tam Jarquin ; Jonny Jane ; Buddy Gutierrez ; Latoya Godwin ; Zunilda Keys ; Yohana Limon ; Paul Jeffries ; Franky Cuadra ; Bryan Turcios ; Chance Mueller ; Pebbles March ; Rosalia Armstrong ; Rochelle Lyon ; Sheron Earl ; Phil Oconnor ; Keyshawn Gonzalez ; Reginald King ; Teresa Kennedy ; Edis Gonzalez ; Toya Atwood ; Cris Vargas ; Cristina Balderrama ; Minal Nagy ; Madeline Kuhn ; Yonatan Chavis ; Trevin Skinner ; Yohana Gonzalez ; Josselyn Malik Jr Other Interventions: Discharge Summary Assessment (RN) Last Done: 06/06/22 13:58
[2022-06-06] MEDS ORDERED: PANTOprazole 40 MG TAB PO SCH (21:00)
== END 2022-06-06 14:20 | disposition home or self-care (01) ==
LOC: ED 03:53 → EDINP 03:53 → SUATTDRO 07:03 → 2S 08:12